=== PATIENT | male | born 1980 | race Caucasian/White ===

== ENCOUNTER 2021-03-16 21:22 | Emergency (ER) | payer BC ==
--- NOTE | 2021-03-17 01:16 | EDM.PDOC ---
ED HPI GENERAL MEDICAL PROBLEM - General Chief Complaint: Respiratory Problem Stated Complaint: COVID+/PNEUMONIA/LOW O2 Time Seen by Provider: 03/17/21 01:14 - History of Present Illness INITIAL COMMENTS - FREE TEXT/NARRATIVE: 40-year-old male presents the emergency room with decreasing O2 saturation he is known to have Covid. Patient was diagnosed at one of the clinics couple of days ago with Covid since that time is noticed his O2 saturation decreasing. The patient has not received Regeneron. He has been started on Zithromax and Cefpodoxime by the physician in the clinic. And he has not had the vaccine. Patient denies any other complaints at this time. - Related Data Allergies Allergy/AdvReac Type Severity Reaction Status Date / Time Penicillins Allergy Severe Rash Verified 03/16/21 23:17 Home Meds: Home Meds dexAMETHasone [Decadron] 6 mg PO DAILY #9 tablet 03/17/21 [Rx] ED ROS GENERAL - Review of Systems Review Of Systems: See Below Constitutional: Reports: Fever, Malaise, Weakness HEENT: Reports: No Symptoms Respiratory: Reports: Shortness of Breath, Cough. Denies: Sputum Cardiovascular: Reports: No Symptoms Endocrine: Reports: No Symptoms GI/Abdominal: Reports: No Symptoms : Reports: No Symptoms Musculoskeletal: Reports: No Symptoms Skin: Reports: No Symptoms Neurological: Reports: No Symptoms Psychiatric: Reports: No Symptoms Hematologic/Lymphatic: Reports: No Symptoms ED EXAM, GENERAL - Physical Exam Exam: See Below Exam Limited By: No Limitations General Appearance: Alert, No Apparent Distress, Other (He does drop into the mid to upper 80s on room air) Eye Exam: Bilateral Eye: Normal Inspection Ears: Normal External Exam, Normal Canal, Hearing Grossly Normal, Normal TMs Nose: Normal Inspection, Normal Mucosa, No Blood Throat/Mouth: Normal Inspection, Normal Lips, Normal Teeth, Normal Gums, Normal Oropharynx, Normal Voice, No Airway Compromise Head: Atraumatic, Normocephalic Neck: Normal Inspection, Supple, Non-Tender, Full Range of Motion Respiratory/Chest: No Respiratory Distress, Lungs Clear, Crackles (Few faint crackles bilateral lung bases) Cardiovascular: Normal Peripheral Pulses, Regular Rate, Rhythm, No Edema GI/Abdominal: Normal Bowel Sounds, Soft, Non-Tender Back Exam: Normal Inspection. No: CVA Tenderness (L), CVA Tenderness (R) Extremities: Normal Inspection, No Pedal Edema Neurological: Alert, Oriented, Normal Cognition #1 Interpretation EKG Date: 03/17/21 Rhythm: NSR Rate (Beats/Min): 90 [place]: LAD-Left [place] Deviation (Borderline) P-Wave: Present (Late transition) QRS: Other (Late transition) ST-T: Normal QT: Normal Comparison: NA - No Prior EKG EKG Interpretation Comments: Abnormal EKG Course - Vital Signs Last Recorded V/S: Last Vital Signs Temp 36.8 C 03/16/21 23:11 Pulse 97 03/16/21 23:11 Resp 18 03/16/21 23:11 BP Pulse Ox 88 L 03/17/21 05:29 - Orders/Labs/Meds Orders: Active Orders 24 hr Category Date Time Status RT Post Treatment Assessment [RC] Click to Edit Care 03/17/21 06:26 Ordered RT Pre-Treatment Assessment [RC] Click to Edit Care 03/17/21 06:26 Ordered Chest 1V Frontal [CR] Stat Exams 03/17/21 01:27 Taken Labs: Laboratory Tests 03/17/21 03/17/21 03/17/21 Range/Units 01:46 01:46 01:46 WBC 5.79 (4.23-9.07) K/mm3 RBC 4.89 (4.63-6.08) M/mm3 Hgb 14.9 (13.7-17.5) gm/dl Hct 43.5 (40.1-51.0) % MCV 89.0 (79.0-92.2) fl MCH 30.5 (25.7-32.2) pg MCHC 34.3 (32.2-35.5) g/dl RDW Std Deviation 41.7 (35.1-43.9) fL Plt Count 165 (163-337) K/mm3 MPV 10.3 (9.4-12.3) fl Neut % (Auto) 77.8 H (34.0-67.9) % Lymph % (Auto) 13.6 L (21.8-53.1) % [place] % (Auto) 7.9 (5.3-12.2) % Eos % (Auto) 0.2 L (0.8-7.0) Baso % (Auto) 0.2 (0.1-1.2) % Neut # (Auto) 4.50 (1.78-5.38) K/mm3 Lymph # (Auto) 0.79 L (1.32-3.57) K/mm3 [place] # (Auto) 0.46 (0.30-0.82) K/mm3 Eos # (Auto) 0.01 L (0.04-0.54) K/mm3 Baso # (Auto) 0.01 (0.01-0.08) K/mm3 D-Dimer, Quantitative 0.85 H (0.19-0.50) mg/L Sodium 136 (136-145) mEq/L Potassium 3.2 L (3.5-5.1) mEq/L Chloride 98 (98-107) mEq/L Carbon Dioxide 27 (21-32) mEq/L Anion Gap 14.2 (5-15) BUN 10 (7-18) mg/dL Creatinine 1.0 (0.7-1.3) mg/dL Est Cr Clr Drug Dosing 112.08 mL/min Estimated GFR (MDRD) > 60 (>60) mL/min BUN/Creatinine Ratio 10.0 L (14-18) Glucose 118 H (70-99) mg/dL Calcium 8.2 L (8.5-10.1) mg/dL Ferritin (26-388) ng/ml Total Bilirubin 0.5 (0.2-1.0) mg/dL AST 112 H (15-37) U/L ALT 149 H (16-63) U/L Alkaline Phosphatase 93 (46-116) U/L Lactate Dehydrogenase 417 H (85-227) U/L Troponin I < 0.017 (0.00-0.056) ng/mL C-Reactive Protein 7.1 H* (<1.0) mg/dL Total Protein 6.8 (6.4-8.2) g/dl Albumin 3.2 L (3.4-5.0) g/dl Globulin 3.6 gm/dL Albumin/Globulin Ratio 0.9 L (1-2) 03/17/ Range/Units 01:46 WBC (4.23-9.07) K/mm3 RBC (4.63-6.08) M/mm3 Hgb (13.7-17.5) gm/dl Hct (40.1-51.0) % MCV (79.0-92.2) fl MCH (25.7-32.2) pg MCHC (32.2-35.5) g/dl RDW Std Deviation (35.1-43.9) fL Plt Count (163-337) K/mm3 MPV (9.4-12.3) fl Neut % (Auto) (34.0-67.9) % Lymph % (Auto) (21.8-53.1) % [place] % (Auto) (5.3-12.2) % Eos % (Auto) (0.8-7.0) Baso % (Auto) (0.1-1.2) % Neut # (Auto) (1.78-5.38) K/mm3 Lymph # (Auto) (1.32-3.57) K/mm3 [place] # (Auto) (0.30-0.82) K/mm3 Eos # (Auto) (0.04-0.54) K/mm3 Baso # (Auto) (0.01-0.08) K/mm3 D-Dimer, Quantitative (0.19-0.50) mg/L Sodium (136-145) mEq/L Potassium (3.5-5.1) mEq/L Chloride (98-107) mEq/L Carbon Dioxide (21-32) mEq/L Anion Gap (5-15) BUN (7-18) mg/dL Creatinine (0.7-1.3) mg/dL Est Cr Clr Drug Dosing mL/min Estimated GFR (MDRD) (>60) mL/min BUN/Creatinine Ratio (14-18) Glucose (70-99) mg/dL Calcium (8.5-10.1) mg/dL Ferritin 2392 H (26-388) ng/ml Total Bilirubin (0.2-1.0) mg/dL AST (15-37) U/L ALT (16-63) U/L Alkaline Phosphatase (46-116) U/L Lactate Dehydrogenase (85-227) U/L Troponin I (0.00-0.056) ng/mL C-Reactive Protein (<1.0) mg/dL Total Protein (6.4-8.2) g/dl Albumin (3.4-5.0) g/dl Globulin gm/dL Albumin/Globulin Ratio (1-2) Meds: Medications Discontinued Medications Generic Name Dose Route Start Last Admin Trade Name Lupis PRN Reason Stop Dose Admin Albuterol 0 gm 03/17/21 06:26 Albuterol 6.7 Gm Inhaler INH 03/17/21 06:27 Q4H ONE Dexamethasone 6 mg 03/17/21 06:24 Dexamethasone 4 Mg Tab PO 03/17/21 06:25 ONETIME ONE - Re-Assessments/Exams Free Text/Narrative Re-Assessment/Exam: 03/17/21 05:13 Labs obtained. Chest x-ray consistent with a viral type pneumonia. With further discussion with the patient he really does not want more medications for this. His O2 saturation was a little low however it was a little better in the prone position but did not reliably stay up above 90% especially with him sleeping. At this point we will try and get home O2 set up for him. Apparently the patient does not want remdesivir. We will send home with dexamethasone and albuterol MDI and home O2 Departure - Departure Time of Disposition: 06:30 Disposition: Home, Self-Care 01 Clinical Impression: Pneumonia due to COVID-19 virus - Discharge Information Referrals: PCP,None [Primary Care Provider] - Forms: ED Department Discharge Additional Instructions: Return to the emergency room with any questions problems or concerning symptoms. You have been started on oxygen use this at all times until you start to improve. Continue routine medications. We have added an albuterol inhaler 2 puffs every 4 hours while awake and dexamethasone, this is a steroid take this every morning. The prescription for the dexamethasone was sent to the [place] pharmacy. And the albuterol inhaler was given to you here in the emergency department. Social isolation for at least 12 days after the onset of symptoms or as directed by the health department. Sepsis Event Note (ED) - Evaluation Sepsis Screening Result: No Definite Risk - Focused Exam Vital Signs: Vital Signs Temp Pulse Resp Pulse Ox 03/17/21 05:29 88 L 03/16/21 23:11 36.8 C 97 18 89 L - My Orders Last 24 Hours: My Active Orders 03/17/21 01:27 Chest 1V Frontal [CR] Stat 03/17/21 06:26 RT Post Treatment Assessment [RC] Click to Edit RT Pre-Treatment Assessment [RC] Click to Edit - Assessment/Plan Last 24 Hours: My Active Orders 03/17/21 01:27 Chest 1V Frontal [CR] Stat 03/17/21 06:26 RT Post Treatment Assessment [RC] Click to Edit RT Pre-Treatment Assessment [RC] Click to Edit
[2021-03-17] MEDS ORDERED: Dexamethasone 4 MG Tab PO ONE (06:24)
[2021-03-17] MEDS ORDERED: Albuterol 6.7 GM Inhaler INH ONE (06:26)
--- NOTE | 2021-03-17 07:41 | CR ---
Chest: Frontal view of the chest was obtained. Comparison: No prior chest imaging is available. Diffuse increased density is seen within the left chest. Lesser density is noted within the right mid and lower chest. Heart size and mediastinum are normal. Bony structures show nothing acute. Impression: 1. Findings highly suspicious for COVID pneumonia, worse within the left lung. Diagnostic code #3
== END 2021-03-17 07:18 | disposition home or self-care (01) ==
LOC: JD.ED 21:22
DX: U07.1 COVID-19 (principal); J12.82 Pneumonia due to coronavirus disease 2019; R94.31 Abnormal electrocardiogram [ECG] [EKG]; Z88.0 Allergy status to penicillin
CPT/HCPCS: 36415; 71045; 80053; 82728; 83615; 84484; 85025; 85379; 86140; 93005; 94640; 99284; A9270; J8540; 93010; 99283

== ENCOUNTER 2021-03-21 11:32 | Inpatient (IN) | payer BC ==
--- NOTE | 2021-03-21 12:36 | EDM.PDOC ---
ED HPI GENERAL MEDICAL PROBLEM - General Chief Complaint: Respiratory Problem Stated Complaint: RESP PROBLEMS Time Seen by Provider: 03/21/21 11:55 Source of Information: Reports: Patient, RN Notes Reviewed History Limitations: Reports: No Limitations - History of Present Illness INITIAL COMMENTS - FREE TEXT/NARRATIVE: Patient is a 40-year-old male presenting to the emergency department with complaints of low oxygen saturations with a known diagnosis of COVID-19. Patient began symptoms of Covid on approximately March 08 and was diagnosed as Covid positive on the . Main complaint at this time is cough and shortness of breath. He was seen in this emergency department 2 days ago. He was found to have Covid pneumonia at that time. Regeneron was offered, however patient declined as his do not want to have it. Patient reports that during the night his oxygen saturations seem to maintain, however throughout the course of the day today they have been continuing to decline. Patient has been treated with azithromycin and is currently on 6 mg of dexamethasone daily. He denies any chronic medical conditions. He denies chest pain, nausea, vomiting, or diarrhea. - Related Data Allergies Allergy/AdvReac Type Severity Reaction Status Date / Time Penicillins Allergy Intermediate Rash Verified 03/21/21 11:50 Home Meds: Home Meds dexAMETHasone [Decadron] 6 mg PO DAILY #9 tablet 03/17/21 [Rx] Azithromycin [Zithromax] 250 mg PO DAILY 03/21/21 [History] Past Medical History - Past Health History Medical/Surgical History: Denies Medical/Surgical History - Infectious Disease History Infectious Disease History: Reports: Novel Coronavirus - Past Surgical History HEENT Surgical History: Reports: Oral Surgery GI Surgical History: Reports: Hernia Repair/Other Social & Family History - Tobacco Use Tobacco Use Status *Q: Current Every Day Tobacco User Years of Tobacco use: 5 Packs/Tins Daily: 0.2 - Caffeine Use Caffeine Use: Reports: None - Alcohol Use Days Per Week of Alcohol Use: 2 Number of Drinks Per Day: 1 Total Drinks Per Week: 2 - Recreational Drug Use Recreational Drug Use: No ED ROS GENERAL - Review of Systems Review Of Systems: See Below Constitutional: Reports: No Symptoms. Denies: Fever HEENT: Reports: No Symptoms Respiratory: Reports: Shortness of Breath, Cough Cardiovascular: Reports: Dyspnea on Exertion. Denies: Chest Pain Endocrine: Reports: No Symptoms GI/Abdominal: Reports: No Symptoms. Denies: Abdominal Pain, Diarrhea, Vomiting : Reports: No Symptoms Musculoskeletal: Reports: No Symptoms Skin: Reports: No Symptoms Neurological: Reports: No Symptoms Psychiatric: Reports: No Symptoms Hematologic/Lymphatic: Reports: No Symptoms Immunologic: Reports: No Symptoms ED EXAM, GENERAL - Physical Exam Exam: See Below Exam Limited By: No Limitations General Appearance: Alert, WD/WN, No Apparent Distress Respiratory/Chest: No Respiratory Distress, No Accessory Muscle Use, Chest Non- Tender, Decreased Breath Sounds. No: Crackles, Wheezing Cardiovascular: Normal Peripheral Pulses, Regular Rate, Rhythm, No Edema, No Gallop, No JVD, No Murmur, No Rub Neurological: Alert, Oriented, CN II-XII Intact, Normal Cognition, Normal Gait, Normal Reflexes, No Motor/Sensory Deficits Psychiatric: Normal Affect, Normal Mood Skin Exam: Warm, Dry, Intact, Normal Color, No Rash #1 Interpretation EKG Date: 03/21/21 Time: 12:18 Rhythm: NSR Rate (Beats/Min): 87 [place]: Normal P-Wave: Present QRS: Normal ST-T: Normal QT: Normal Course - Vital Signs Last Recorded V/S: Last Vital Signs Temp 98.4 F 03/22/21 17:12 Pulse 72 03/22/21 17:12 Resp 20 03/22/21 17:12 BP 125/75 03/22/21 17:12 Pulse Ox 92 L 03/22/21 17:35 - Orders/Labs/Meds Orders: Medication Orders Acetaminophen (Acetaminophen 325 Mg Tab) 650 mg PO Q4H PRN PRN Reason: Pain (Mild 1-3)/fever Albuterol/Ipratropium (Albuterol/Ipratropium 3.0-0.5 Mg/3 Ml Neb Soln) 3 ml NEB Q4H PRN PRN Reason: Shortness Of Breath/wheezing Last Admin: 03/22/21 09:11 Dose: 3 ml Documented by: DEBORAH Dexamethasone (Dexamethasone 4 Mg Tab) 6 mg PO DAILY SLOAN Last Admin: 03/22/21 08:47 Dose: 6 mg Documented by: [email or web address] Docusate Sodium (Docusate Sodium 100 Mg Cap) 100 mg PO BID PRN PRN Reason: Constipation Enoxaparin Sodium (Enoxaparin 40 Mg/0.4 Ml Syringe) 40 mg SUBCUT DAILY [facility] Last Admin: 03/22/21 08:47 Dose: 40 mg Documented by: IRVING Azithromycin 500 mg/ Sodium (Chloride) 250 mls @ 250 mls/hr IV Q24H [facility] Last Admin: 03/22/21 15:03 Dose: 250 mls/hr Documented by: Infusion: 03/21/21 16:50 Dose: 250 mls/hr Documented by: Admin: 03/21/21 15:50 Dose: 250 mls/hr Documented by: LONNY Ondansetron HCl (Ondansetron 4 Mg Tab.Dis) 4 mg PO Q4H PRN PRN Reason: nausea, able to take PO Oxycodone HCl (Oxycodone 5 Mg Tab) 5 mg PO Q4H PRN PRN Reason: Pain (moderate 4-6) Temazepam (Temazepam 15 Mg Cap) 15 mg PO BEDTIME PRN PRN Reason: Sleep Labs: Laboratory Tests 03/21/21 03/21/21 03/21/21 Range/Units 12:19 12:19 12:19 WBC 15.29 H (4.23-9.07) K/mm3 RBC 5.02 (4.63-6.08) M/mm3 Hgb 15.2 (13.7-17.5) gm/dl Hct 45.0 (40.1-51.0) % MCV 89.6 (79.0-92.2) fl MCH 30.3 (25.7-32.2) pg MCHC 33.8 (32.2-35.5) g/dl RDW Std Deviation 41.2 (35.1-43.9) fL Plt Count 329 D (163-337) K/mm3 MPV 9.8 (9.4-12.3) fl Neut % (Auto) 76.0 H (34.0-67.9) % Lymph % (Auto) 9.2 L (21.8-53.1) % [place] % (Auto) 10.3 (5.3-12.2) % Eos % (Auto) 0 L (0.8-7.0) Baso % (Auto) 1.6 H (0.1-1.2) % Neut # (Auto) 11.62 H (1.78-5.38) K/mm3 Lymph # (Auto) 1.40 (1.32-3.57) K/mm3 [place] # (Auto) 1.57 H (0.30-0.82) K/mm3 Eos # (Auto) 0.00 L (0.04-0.54) K/mm3 Baso # (Auto) 0.25 H (0.01-0.08) K/mm3 Manual Slide Review Abnormal smear D-Dimer, Quantitative 8.59 H (0.19-0.50) mg/L Sodium 135 L (136-145) mEq/L Potassium 4.2 (3.5-5.1) mEq/L Chloride 99 (98-107) mEq/L Carbon Dioxide 28 (21-32) mEq/L Anion Gap 12.2 (5-15) BUN 16 (7-18) mg/dL Creatinine 0.9 (0.7-1.3) mg/dL Est Cr Clr Drug Dosing 120.95 mL/min Estimated GFR (MDRD) > 60 (>60) mL/min BUN/Creatinine Ratio 17.8 (14-18) Glucose 132 H (70-99) mg/dL Calcium 8.8 (8.5-10.1) mg/dL Total Bilirubin 0.7 (0.2-1.0) mg/dL AST 108 H (15-37) U/L ALT 221 H (16-63) U/L Alkaline Phosphatase 142 H (46-116) U/L Troponin I < 0.017 (0.00-0.056) ng/mL C-Reactive Protein 3.0 H* (<1.0) mg/dL NT-Pro-B Natriuret Pep (0-125) pg/mL Total Protein 7.2 (6.4-8.2) g/dl Albumin 3.0 L (3.4-5.0) g/dl Globulin 4.2 gm/dL Albumin/Globulin Ratio 0.7 L (1-2) 03/21/21 Range/Units 12:19 WBC (4.23-9.07) K/mm3 RBC (4.63-6.08) M/mm3 Hgb (13.7-17.5) gm/dl Hct (40.1-51.0) % MCV (79.0-92.2) fl MCH (25.7-32.2) pg MCHC (32.2-35.5) g/dl RDW Std Deviation (35.1-43.9) fL Plt Count (163-337) K/mm3 MPV (9.4-12.3) fl Neut % (Auto) (34.0-67.9) % Lymph % (Auto) (21.8-53.1) % [place] % (Auto) (5.3-12.2) % Eos % (Auto) (0.8-7.0) Baso % (Auto) (0.1-1.2) % Neut # (Auto) (1.78-5.38) K/mm3 Lymph # (Auto) (1.32-3.57) K/mm3 [place] # (Auto) (0.30-0.82) K/mm3 Eos # (Auto) (0.04-0.54) K/mm3 Baso # (Auto) (0.01-0.08) K/mm3 Manual Slide Review D-Dimer, Quantitative (0.19-0.50) mg/L Sodium (136-145) mEq/L Potassium (3.5-5.1) mEq/L Chloride (98-107) mEq/L Carbon Dioxide (21-32) mEq/L Anion Gap (5-15) BUN (7-18) mg/dL Creatinine (0.7-1.3) mg/dL Est Cr Clr Drug Dosing mL/min Estimated GFR (MDRD) (>60) mL/min BUN/Creatinine Ratio (14-18) Glucose (70-99) mg/dL Calcium (8.5-10.1) mg/dL Total Bilirubin (0.2-1.0) mg/dL AST (15-37) U/L ALT (16-63) U/L Alkaline Phosphatase (46-116) U/L Troponin I (0.00-0.056) ng/mL C-Reactive Protein (<1.0) mg/dL NT-Pro-B Natriuret Pep 193 H (0-125) pg/mL Total Protein (6.4-8.2) g/dl Albumin (3.4-5.0) g/dl Globulin gm/dL Albumin/Globulin Ratio (1-2) Meds: Medications Generic Name Dose Route Start Last Admin Trade Name Lupis PRN Reason Stop Dose Admin Acetaminophen 650 mg 03/21/21 14:12 Acetaminophen 325 Mg Tab PO Q4H PRN Pain (Mild 1-3)/fever Albuterol/Ipratropium 3 ml 03/21/21 14:12 03/22/21 09:11 Albuterol/Ipratropium 3.0-0.5 Mg/3 Ml Neb Soln NEB 3 ml Q4H PRN Administration Shortness Of Breath/wheezing Dexamethasone 6 mg 03/22/21 09:00 03/22/21 08:47 Dexamethasone 4 Mg Tab PO 6 mg DAILY SLOAN Administration Docusate Sodium 100 mg 03/21/21 14:12 Docusate Sodium 100 Mg Cap PO BID PRN Constipation Enoxaparin Sodium 40 mg 03/22/21 09:00 03/22/21 08:47 Enoxaparin 40 Mg/0.4 Ml Syringe SUBCUT 40 mg DAILY SLOAN Administration Azithromycin 500 mg/ Sodium 250 mls @ 250 mls/hr 03/21/21 15:00 03/22/21 15:03 Chloride IV 250 mls/hr Q24H SLOAN Administration Ondansetron HCl 4 mg 03/21/21 14:12 Ondansetron 4 Mg Tab.Dis PO Q4H PRN nausea, able to take PO Oxycodone HCl 5 mg 03/21/21 14:12 Oxycodone 5 Mg Tab PO Q4H PRN Pain (moderate 4-6) Temazepam 15 mg 03/21/21 14:12 Temazepam 15 Mg Cap PO BEDTIME PRN Sleep Discontinued Medications Generic Name Dose Route Start Last Admin Trade Name Lupis PRN Reason Stop Dose Admin Sodium Chloride 100 mls @ 60 mls/hr 03/21/21 15:15 03/21/21 15:12 Normal Saline IV 60 mls/hr ASDIRECTED SLOAN Administration Iopamidol 100 ml 03/21/21 15:11 03/21/21 15:12 Iopamidol 755 Mg/Ml 100 Ml Bottle IVPUSH 03/21/21 15:12 100 ml ONETIME ONE Administration Morphine Sulfate 2 mg 03/21/21 14:12 Morphine 2 Mg/Ml Syringe IVPUSH 03/22/21 14:12 Q2H PRN Pain (severe 7-10) Sodium Chloride 10 ml 03/21/21 15:11 03/21/21 15:12 Sodium Chloride 0.9% 10 Ml Syringe FLUSH 03/21/21 15:12 10 ml ONETIME ONE Administration - Re-Assessments/Exams Free Text/Narrative Re-Assessment/Exam: Patient is a 40-year-old male presenting to the emergency department for low oxygen saturations with diagnosis of Covid. He is approximately 2 weeks into his illness. Report oxygen saturations in the 80s at home. On arrival to ER, oxygen saturation was found to be in the low 80s. He was placed on supplemental O2 at 2 L which only brought him up into the upper 80s. Nursing staff had progressively titrated him up. The time my exam he was on 4 L of oxygen still only saturating in the upper 80s. I turned him up to 6 L and he was maintaining oxygen saturation of 88%. Lung sounds are significantly diminished, however there is no audible crackling or wheezing. Majority of his other symptoms have resolved. His only complaints are cough and shortness of breath. I have ordered blood work, EKG, chest x-ray. Patient is already on dexamethasone 6 mg daily. Patient will be started on high flow oxygen to keep saturations above 90%. 03/21/21 1400 Hematology significant for WBC elevated 15.29, D-dimer 8.59, sodium 135, AST 108, ALT 221, alkaline phosphatase 142, CRP 3.0, proBNP 193. Troponin is undetectably low. Elevation in WBCs is likely due to the dexamethasone which the patient has been taking. He is maintaining oxygen saturations in the low 90s on 35 L of oxygen with an FiO2 of 45%. Given the significant increase in his D-dimer, I have ordered a CT angiogram of the chest to be completed. Case was discussed with hospitalist, Dr. Francois. He will accept the patient for admission to the medical surgical unit. Departure - Departure Time of Disposition: 14:00 Disposition: Admitted As Inpatient 67 Condition: Fair Clinical Impression: Pneumonia due to COVID-19 virus, Hypoxemia Acute respiratory failure Qualifiers: Respiratory failure complication: hypoxia Qualified Code(s): J96.01 - Acute respiratory failure with hypoxia - Discharge Information
[2021-03-21] MEDS ORDERED: oxyCODONE 5 MG Tab PO PRN (14:12)
[2021-03-21] MEDS ORDERED: Docusate Sodium 100 MG Cap PO PRN (14:12)
[2021-03-21] MEDS ORDERED: Acetaminophen 325 MG Tab PO PRN (14:12)
[2021-03-21] MEDS ORDERED: Ondansetron 4 MG Tab.DIS PO PRN (14:12)
[2021-03-21] MEDS ORDERED: Temazepam 15 MG Cap PO PRN (14:12)
[2021-03-21] MEDS ORDERED: Morphine 2 MG/ML SYRINGE IVPUSH PRN (14:12)
--- NOTE | 2021-03-21 14:19 | PCM.HP.2 ---
H&P History of Present Illness - General Date of Service: 03/21/21 Admit Problem/Dx: Admission Diagnosis/Problem Admission Diagnosis/Problem Hypoxia Source of Information: Patient History Limitations: Reports: No Limitations - History of Present Illness Initial Comments - Free Text/Narative: The patient is an otherwise healthy 40-year-old gentleman who presented to the emergency department with worsening shortness of breath and and low oxygen saturation levels. The patient had been testing his pulse ox at home. The patient had been using oxygen at home on a temporary basis and he also had been started on steroids. The patient also completed a course of azithromycin. Initially Regeneron was offered but this was declined. The patient also states that he is off of quarantine according to the [facility] department. The patient is not taking any other medications chronically. Onset of Symptoms: Reports: Gradual Duration of Symptoms: Reports: Week(s): Location: Reports: Chest, Generalized Severity: Mild Improves with: Reports: Rest, Other (Oxygen) Worsens with: Reports: Movement Context: Reports: Sick Contact Associated Symptoms: Reports: No Other Symptoms - Related Data Allergies/Adverse Reactions: Allergies Allergy/AdvReac Type Severity Reaction Status Date / Time Penicillins Allergy Intermediate Rash Verified 03/21/21 11:50 Home Medications: Home Meds dexAMETHasone [Decadron] 6 mg PO DAILY #9 tablet 03/17/21 [Rx] Past Medical History - Past Health History Medical/Surgical History: Denies Medical/Surgical History HEENT History: Reports: None Cardiovascular History: Reports: None Respiratory History: Reports: None Gastrointestinal History: Reports: None Genitourinary History: Reports: None Musculoskeletal History: Reports: None Neurological History: Reports: None Psychiatric History: Reports: None Endocrine/Metabolic History: Reports: None Hematologic History: Reports: None Oncologic (Cancer) History: Reports: None - Infectious Disease History Infectious Disease History: Reports: Novel Coronavirus - Past Surgical History HEENT Surgical History: Reports: Oral Surgery GI Surgical History: Reports: Hernia Repair/Other Social & Family History - Tobacco Use Tobacco Use Status *Q: Current Every Day Tobacco User Tobacco Use Within Last Twelve Months: Smokeless Tobacco Years of Tobacco use: 5 Packs/Tins Daily: 0.2 - Caffeine Use Caffeine Use: Reports: None - Alcohol Use Days Per Week of Alcohol Use: 2 Number of Drinks Per Day: 1 Total Drinks Per Week: 2 - Recreational Drug Use Recreational Drug Use: No - Living Situation & Occupation Living situation: Reports: , with Spouse Occupation: Employed H&P Review of Systems - Review of Systems: Review Of Systems: See Below General: Reports: Chills, Weakness HEENT: Reports: No Symptoms Pulmonary: Reports: Shortness of Breath Cardiovascular: Reports: No Symptoms Gastrointestinal: Reports: No Symptoms Genitourinary: Reports: No Symptoms Musculoskeletal: Reports: No Symptoms Skin: Reports: No Symptoms Psychiatric: Reports: No Symptoms Neurological: Reports: No Symptoms Hematologic/Lymphatic: Reports: No Symptoms Immunologic: Reports: No Symptoms Exam - Exam Exam: See Below - Vital Signs Vital Signs: Last Vital Signs Temp 36.4 C 03/21/21 11:47 Pulse 86 03/21/21 11:47 Resp 20 03/21/21 11:47 BP 138/85 03/21/21 11:47 Pulse Ox 92 L 03/21/21 13:55 Weight: 108.862 kg - Exam Quality Assessment: Supplemental Oxygen, DVT Prophylaxis General: Alert, Oriented, Cooperative HEENT: Conjunctiva Clear, EACs Clear, EOMI, Mucosa Moist & [place], PERRLA Neck: Supple, Trachea Midline Lungs: Decreased Breath Sounds, Crackles (Widely scattered) Cardiovascular: Regular Rate, Regular Rhythm GI/Abdominal Exam: Normal Bowel Sounds, Soft, Non-Tender, No Distention (Male) Exam: Deferred Rectal (Males) Exam: Deferred Back Exam: Normal Inspection, Full Range of Motion Extremities: Normal Inspection, Normal Range of Motion, No Pedal Edema Skin: Warm, Dry, Intact Neurological: Cranial Nerves Intact, Normal Gait, Normal Speech, Normal Tone Psychiatric: Alert, Normal Affect, Normal Mood - Patient Data Lab Results Last 24 hrs: Laboratory Results - last 24 hr 03/21/21 03/21/21 03/21/21 Range/Units 12:19 12:19 12:19 WBC 15.29 H (4.23-9.07) K/mm3 RBC 5.02 (4.63-6.08) M/mm3 Hgb 15.2 (13.7-17.5) gm/dl Hct 45.0 (40.1-51.0) % MCV 89.6 (79.0-92.2) fl MCH 30.3 (25.7-32.2) pg MCHC 33.8 (32.2-35.5) g/dl RDW Std Deviation 41.2 (35.1-43.9) fL Plt Count 329 D (163-337) K/mm3 MPV 9.8 (9.4-12.3) fl Neut % (Auto) 76.0 H (34.0-67.9) % Lymph % (Auto) 9.2 L (21.8-53.1) % [place] % (Auto) 10.3 (5.3-12.2) % Eos % (Auto) 0 L (0.8-7.0) Baso % (Auto) 1.6 H (0.1-1.2) % Neut # (Auto) 11.62 H (1.78-5.38) K/mm3 Lymph # (Auto) 1.40 (1.32-3.57) K/mm3 [place] # (Auto) 1.57 H (0.30-0.82) K/mm3 Eos # (Auto) 0.00 L (0.04-0.54) K/mm3 Baso # (Auto) 0.25 H (0.01-0.08) K/mm3 Manual Slide Review Abnormal smear D-Dimer, Quantitative 8.59 H (0.19-0.50) mg/L Sodium 135 L (136-145) mEq/L Potassium 4.2 (3.5-5.1) mEq/L Chloride 99 (98-107) mEq/L Carbon Dioxide 28 (21-32) mEq/L Anion Gap 12.2 (5-15) BUN 16 (7-18) mg/dL Creatinine 0.9 (0.7-1.3) mg/dL Est Cr Clr Drug Dosing 120.95 mL/min Estimated GFR (MDRD) > 60 (>60) mL/min BUN/Creatinine Ratio 17.8 (14-18) Glucose 132 H (70-99) mg/dL Calcium 8.8 (8.5-10.1) mg/dL Total Bilirubin 0.7 (0.2-1.0) mg/dL AST 108 H (15-37) U/L ALT 221 H (16-63) U/L Alkaline Phosphatase 142 H (46-116) U/L Troponin I < 0.017 (0.00-0.056) ng/mL C-Reactive Protein 3.0 H* (<1.0) mg/dL NT-Pro-B Natriuret Pep (0-125) pg/mL Total Protein 7.2 (6.4-8.2) g/dl Albumin 3.0 L (3.4-5.0) g/dl Globulin 4.2 gm/dL Albumin/Globulin Ratio 0.7 L (1-2) 03/21/ Range/Units 12:19 WBC (4.23-9.07) K/mm3 RBC (4.63-6.08) M/mm3 Hgb (13.7-17.5) gm/dl Hct (40.1-51.0) % MCV (79.0-92.2) fl MCH (25.7-32.2) pg MCHC (32.2-35.5) g/dl RDW Std Deviation (35.1-43.9) fL Plt Count (163-337) K/mm3 MPV (9.4-12.3) fl Neut % (Auto) (34.0-67.9) % Lymph % (Auto) (21.8-53.1) % [place] % (Auto) (5.3-12.2) % Eos % (Auto) (0.8-7.0) Baso % (Auto) (0.1-1.2) % Neut # (Auto) (1.78-5.38) K/mm3 Lymph # (Auto) (1.32-3.57) K/mm3 [place] # (Auto) (0.30-0.82) K/mm3 Eos # (Auto) (0.04-0.54) K/mm3 Baso # (Auto) (0.01-0.08) K/mm3 Manual Slide Review D-Dimer, Quantitative (0.19-0.50) mg/L Sodium (136-145) mEq/L Potassium (3.5-5.1) mEq/L Chloride (98-107) mEq/L Carbon Dioxide (21-32) mEq/L Anion Gap (5-15) BUN (7-18) mg/dL Creatinine (0.7-1.3) mg/dL Est Cr Clr Drug Dosing mL/min Estimated GFR (MDRD) (>60) mL/min BUN/Creatinine Ratio (14-18) Glucose (70-99) mg/dL Calcium (8.5-10.1) mg/dL Total Bilirubin (0.2-1.0) mg/dL AST (15-37) U/L ALT (16-63) U/L Alkaline Phosphatase (46-116) U/L Troponin I (0.00-0.056) ng/mL C-Reactive Protein (<1.0) mg/dL NT-Pro-B Natriuret Pep 193 H (0-125) pg/mL Total Protein (6.4-8.2) g/dl Albumin (3.4-5.0) g/dl Globulin gm/dL Albumin/Globulin Ratio (1-2) Result Diagrams: 03/21/21 12:19 03/21/21 12:19 Sepsis Event Note - Focused Exam Vital Signs: Vital Signs Temp Pulse Resp BP Pulse Ox Pulse Ox Pulse Ox 03/21/21 13:55 92 L 03/21/21 12:54 93 L 03/21/21 11:58 92 L 03/21/21 11:57 88 L 03/21/21 11:47 36.4 C 86 20 138/85 87 L - Problem List (1) Acute respiratory failure SNOMED Code(s): 13346719 ICD Code: J96.00 - ACUTE RESPIRATORY FAILURE, UNSP W HYPOXIA OR HYPERCAPNIA Status: Acute Priority: High Current Visit: Yes Qualifiers: Respiratory failure complication: hypoxia Qualified Code(s): J96.01 - Acute respiratory failure with hypoxia (2) Pneumonia due to COVID-19 virus SNOMED Code(s): 503756427489698297 ICD Code: U07.1 - COVID-19; J12.82 - PNEUMONIA DUE TO CORONAVIRUS DISEASE 2019 Status: Acute Priority: High Current Visit: Yes Problem List Initiated/Reviewed/Updated: Yes Orders Last 24hrs: Active Orders 24 hr Category Date Time Status Admission Status [Patient Status] [ADT] Routine ADT 03/21/21 14:10 Active Cardiac Monitoring [RC] CONTINUOUS Care 03/21/21 14:12 Ordered Oxygen Therapy [RC] ASDIRECTED Care 03/21/21 12:54 Active Oxygen Therapy [RC] PRN Care 03/21/21 14:12 Ordered RT Aerosol Therapy [RC] ASDIRECTED Care 03/21/21 14:12 Ordered Up ad Dariana [RC] ASDIRECTED Care 03/21/21 14:12 Ordered VTE/DVT Education [RC] PER UNIT ROUTINE Care 03/21/21 14:12 Ordered Vital Signs [RC] Q4H Care 03/21/21 14:12 Ordered Regular Diet [DIET] Diet 03/21/21 Dinner Ordered Chest 1V Frontal [CR] Stat Exams 03/21/21 11:57 Taken PE Chest [Ang Chest] [CT] Stat Exams 03/21/21 13:06 Ordered C-REACTIVE PROTEIN [CHEM] AM Lab 03/22/21 05:11 Ordered CBC WITH AUTO DIFF [HEME] AM Lab 03/22/21 05:11 Ordered COMPREHENSIVE METABOLIC PN,CMP [CHEM] AM Lab 03/22/21 05:11 Ordered D-DIMER QUANTITATIVE [COAG] AM Lab 03/22/21 05:11 Ordered MAGNESIUM [CHEM] AM Lab 03/22/21 05:11 Ordered Acetaminophen [TylenoL] Med 03/21/21 14:12 Ordered 650 mg PO Q4H PRN Albuterol/Ipratropium [DuoNeb 3.0-0.5 MG/3 ML] Med 03/21/21 14:12 Ordered 3 ml NEB Q4H PRN Azithromycin [Zithromax] 500 mg Med 03/21/21 14:15 Ordered Sodium Chloride 0.9% [Normal Saline (AdvBag)] 250 ml IV Q24H Docusate Sodium [Colace] Med 03/21/21 14:12 Ordered 100 mg PO BID PRN Enoxaparin [Lovenox] Med 03/22/21 09:00 Ordered 40 mg SUBCUT DAILY Morphine Med 03/21/21 14:12 Ordered 2 mg IVPUSH Q2H PRN Ondansetron [Zofran ODT] Med 03/21/21 14:12 Ordered 4 mg PO Q4H PRN Temazepam [Restoril] Med 03/21/21 14:12 Ordered 15 mg PO BEDTIME PRN dexAMETHasone Med 03/22/21 09:00 Ordered 6 mg PO DAILY oxyCODONE Med 03/21/21 14:12 Ordered 5 mg PO Q4H PRN RT Oxygen High Flow [RESPCARE] Stat Oth 03/21/21 12:54 Active Resuscitation Status Routine Resus Stat 03/21/21 14:12 Ordered Medication Orders Acetaminophen (Acetaminophen 325 Mg Tab) 650 mg PO Q4H PRN PRN Reason: Pain (Mild 1-3)/fever Albuterol/Ipratropium (Albuterol/Ipratropium 3.0-0.5 Mg/3 Ml Neb Soln) 3 ml NEB Q4H PRN PRN Reason: Shortness Of Breath/wheezing Dexamethasone (Dexamethasone 4 Mg Tab) 6 mg PO DAILY SLOAN Docusate Sodium (Docusate Sodium 100 Mg Cap) 100 mg PO BID PRN PRN Reason: Constipation Enoxaparin Sodium (Enoxaparin 40 Mg/0.4 Ml Syringe) 40 mg SUBCUT DAILY SLOAN Azithromycin 500 mg/ Sodium (Chloride) 250 mls @ 250 mls/hr IV Q24H SLOAN Morphine Sulfate (Morphine 2 Mg/Ml Syringe) 2 mg IVPUSH Q2H PRN PRN Reason: Pain (severe 7-10) Stop: 03/22/21 14:12 Ondansetron HCl (Ondansetron 4 Mg Tab.Dis) 4 mg PO Q4H PRN PRN Reason: nausea, able to take PO Oxycodone HCl (Oxycodone 5 Mg Tab) 5 mg PO Q4H PRN PRN Reason: Pain (moderate 4-6) Temazepam (Temazepam 15 Mg Cap) 15 mg PO BEDTIME PRN PRN Reason: Sleep Assessment/Plan Comment:: The patient is an otherwise healthy 40-year-old gentleman who has been admitted to acute hospitalization as inpatient secondary to Covid pneumonia. The patient has a CT scan is currently pending as a result of markedly elevated D-dimer. The patient will be started on Lovenox 40 mg subcu daily venously daily. This will be adjusted upward as conditions warrant. The patient is also be kept on oxygen support to keep his saturations around 90 to 92%. The patient has been started on dexamethasone 6 mg p.o. daily. Also has a superimposed infection is likely the patient has been started on azithromycin 500 mg IV daily. The patient will be kept on his regular diet as tolerated. Repeat laboratory studies have been ordered for the morning. The patient has been ordered to have Acapella and incentive spirometer per RT. The patient should be appropriate for discharge in 2 to 3 days depending upon his oxygen demands. - Mortality Measure Prognosis:: Good
[2021-03-21] MEDS ORDERED: Iopamidol 755 Mg/ML 100 ML Bottle IVPUSH ONE (15:11)
[2021-03-21] MEDS ORDERED: Sodium Chloride 0.9% 10 ML Syringe FLUSH ONE (15:11)
[2021-03-21] MEDS ORDERED: Sodium Chloride 0.9% 100 ML IV SCH (15:15)
--- NOTE | 2021-03-21 15:39 | CR ---
Chest: Frontal view of the chest was obtained. Comparison: Prior chest x-ray of 03/17/21. Diffuse increased density is seen within both sides of the chest which has significantly worsened from prior study compatible with worsening COVID pneumonia. Heart size and mediastinum are within normal limits. No acute osseous finding is seen. Impression: 1. Prominent increased density throughout both sides chest compatible with significant worsening of COVID pneumonia. Diagnostic code #3
--- NOTE | 2021-03-21 15:39 | CT ---
CT chest Technique: Multiple axial sections through the chest were obtained. Intravenous contrast was utilized. Study has been performed as a pulmonary angiogram protocol. Comparison: Prior chest x-ray performed earlier on the same day (11:51 AM). Findings: Pulmonary arteries are well opacified. No filling defects are seen to indicate pulmonary embolism. Thoracic aorta shows no aneurysm. Mediastinum shows small lymph nodes without any mediastinal adenopathy. No axillary adenopathy is seen. No pericardial thickening is seen. Small portion of the visualized upper abdominal structures appear within normal limits. Lung window settings were reviewed which show multiple areas of increased density throughout both lungs compatible with prominent COVID pneumonia. These parenchymal densities are similar to most recent chest x-ray. Bone window settings were reviewed which show slight degenerative spurring within the spine. No acute osseous abnormality is appreciated. Impression: 1. No findings of pulmonary embolism. 2. Prominent change of COVID pneumonia within both lungs. This change is similar to recent chest x-ray performed on the same date. 3. Other findings believed to be nonacute as noted above. Diagnostic code #3
[2021-03-21] MEDS: Azithromycin 500 MG in Sodium Chloride 0.9% 250 ML IV SCH (15:50)
--- NOTE | 2021-03-22 07:11 | PCM.PN ---
- General Info Date of Service: 03/22/21 Admission Dx/Problem (Free Text): Admission Diagnosis/Problem Admission Diagnosis/Problem Hypoxia Subjective Update: The patient is a 40-year-old gentleman who was admitted yesterday secondary to worsening COVID-19 symptoms. The patient has been using pulse oximetry at home. He was also started as an outpatient with steroids. The patient today still says that he has been short of breath. He has been coughing. The patient has denied any new pain. He remains on high flow oxygen. Functional Status: Reports: Pain Controlled, Tolerating Diet - Review of Systems General: Reports: No Symptoms HEENT: Reports: No Symptoms Pulmonary: Reports: Shortness of Breath, Cough Cardiovascular: Reports: No Symptoms Gastrointestinal: Reports: No Symptoms Genitourinary: Reports: No Symptoms Musculoskeletal: Reports: No Symptoms Skin: Reports: No Symptoms Neurological: Reports: No Symptoms Psychiatric: Reports: No Symptoms - Patient Data Vitals - Most Recent: Last Vital Signs Temp 36.8 C 03/22/21 04:34 Pulse 58 L 03/22/21 04:34 Resp 18 03/22/21 04:34 BP 128/69 03/22/21 04:34 Pulse Ox 95 03/22/21 04:34 Weight - Most Recent: 103.147 kg I&O - Last 24 Hours: Intake & Output 03/21/21 03/22/21 03/22/21 22:59 06:59 14:59 Intake Total 450 800 Output Total 600 Balance -150 800 Lab Results Last 24 Hours: Laboratory Results - last 24 hr 03/21/21 03/21/21 03/21/21 Range/Units 12:19 12:19 12:19 WBC 15.29 H (4.23-9.07) K/mm3 RBC 5.02 (4.63-6.08) M/mm3 Hgb 15.2 (13.7-17.5) gm/dl Hct 45.0 (40.1-51.0) % MCV 89.6 (79.0-92.2) fl MCH 30.3 (25.7-32.2) pg MCHC 33.8 (32.2-35.5) g/dl RDW Std Deviation 41.2 (35.1-43.9) fL Plt Count 329 D (163-337) K/mm3 MPV 9.8 (9.4-12.3) fl Neut % (Auto) 76.0 H (34.0-67.9) % Lymph % (Auto) 9.2 L (21.8-53.1) % Harlan % (Auto) 10.3 (5.3-12.2) % Eos % (Auto) 0 L (0.8-7.0) Baso % (Auto) 1.6 H (0.1-1.2) % Neut # (Auto) 11.62 H (1.78-5.38) K/mm3 Lymph # (Auto) 1.40 (1.32-3.57) K/mm3 Harlan # (Auto) 1.57 H (0.30-0.82) K/mm3 Eos # (Auto) 0.00 L (0.04-0.54) K/mm3 Baso # (Auto) 0.25 H (0.01-0.08) K/mm3 Manual Slide Review Abnormal smear D-Dimer, Quantitative 8.59 H (0.19-0.50) mg/L Sodium 135 L (136-145) mEq/L Potassium 4.2 (3.5-5.1) mEq/L Chloride 99 (98-107) mEq/L Carbon Dioxide 28 (21-32) mEq/L Anion Gap 12.2 (5-15) BUN 16 (7-18) mg/dL Creatinine 0.9 (0.7-1.3) mg/dL Est Cr Clr Drug Dosing 120.95 mL/min Estimated GFR (MDRD) > 60 (>60) mL/min BUN/Creatinine Ratio 17.8 (14-18) Glucose 132 H (70-99) mg/dL Calcium 8.8 (8.5-10.1) mg/dL Magnesium (1.8-2.4) mg/dL Total Bilirubin 0.7 (0.2-1.0) mg/dL AST 108 H (15-37) U/L ALT 221 H (16-63) U/L Alkaline Phosphatase 142 H (46-116) U/L Troponin I < 0.017 (0.00-0.056) ng/mL C-Reactive Protein 3.0 H* (<1.0) mg/dL NT-Pro-B Natriuret Pep (0-125) pg/mL Total Protein 7.2 (6.4-8.2) g/dl Albumin 3.0 L (3.4-5.0) g/dl Globulin 4.2 gm/dL Albumin/Globulin Ratio 0.7 L (1-2) 03/21/21 03/22/21 03/22/21 Range/Units 12:19 05:21 05:21 WBC 13.90 H (4.23-9.07) K/mm3 RBC 4.78 (4.63-6.08) M/mm3 Hgb 14.4 (13.7-17.5) gm/dl Hct 43.7 (40.1-51.0) % MCV 91.4 (79.0-92.2) fl MCH 30.1 (25.7-32.2) pg MCHC 33.0 (32.2-35.5) g/dl RDW Std Deviation 41.6 (35.1-43.9) fL Plt Count 337 (163-337) K/mm3 MPV 10.3 (9.4-12.3) fl Neut % (Auto) 70.4 H (34.0-67.9) % Lymph % (Auto) 13.5 L (21.8-53.1) % Harlan % (Auto) 11.2 (5.3-12.2) % Eos % (Auto) 0.1 L (0.8-7.0) Baso % (Auto) 0.8 (0.1-1.2) % Neut # (Auto) 9.79 H (1.78-5.38) K/mm3 Lymph # (Auto) 1.88 (1.32-3.57) K/mm3 Harlan # (Auto) 1.55 H (0.30-0.82) K/mm3 Eos # (Auto) 0.01 L (0.04-0.54) K/mm3 Baso # (Auto) 0.11 H (0.01-0.08) K/mm3 Manual Slide Review D-Dimer, Quantitative 6.97 H (0.19-0.50) mg/L Sodium (136-145) mEq/L Potassium (3.5-5.1) mEq/L Chloride (98-107) mEq/L Carbon Dioxide (21-32) mEq/L Anion Gap (5-15) BUN (7-18) mg/dL Creatinine (0.7-1.3) mg/dL Est Cr Clr Drug Dosing mL/min Estimated GFR (MDRD) (>60) mL/min BUN/Creatinine Ratio (14-18) Glucose (70-99) mg/dL Calcium (8.5-10.1) mg/dL Magnesium (1.8-2.4) mg/dL Total Bilirubin (0.2-1.0) mg/dL AST (15-37) U/L ALT (16-63) U/L Alkaline Phosphatase (46-116) U/L Troponin I (0.00-0.056) ng/mL C-Reactive Protein (<1.0) mg/dL NT-Pro-B Natriuret Pep 193 H (0-125) pg/mL Total Protein (6.4-8.2) g/dl Albumin (3.4-5.0) g/dl Globulin gm/dL Albumin/Globulin Ratio (1-2) 03/22/21 Range/Units 05:21 WBC (4.23-9.07) K/mm3 RBC (4.63-6.08) M/mm3 Hgb (13.7-17.5) gm/dl Hct (40.1-51.0) % MCV (79.0-92.2) fl MCH (25.7-32.2) pg MCHC (32.2-35.5) g/dl RDW Std Deviation (35.1-43.9) fL Plt Count (163-337) K/mm3 MPV (9.4-12.3) fl Neut % (Auto) (34.0-67.9) % Lymph % (Auto) (21.8-53.1) % Harlan % (Auto) (5.3-12.2) % Eos % (Auto) (0.8-7.0) Baso % (Auto) (0.1-1.2) % Neut # (Auto) (1.78-5.38) K/mm3 Lymph # (Auto) (1.32-3.57) K/mm3 Harlan # (Auto) (0.30-0.82) K/mm3 Eos # (Auto) (0.04-0.54) K/mm3 Baso # (Auto) (0.01-0.08) K/mm3 Manual Slide Review D-Dimer, Quantitative (0.19-0.50) mg/L Sodium 138 (136-145) mEq/L Potassium 4.3 (3.5-5.1) mEq/L Chloride 101 (98-107) mEq/L Carbon Dioxide 31 (21-32) mEq/L Anion Gap 10.3 (5-15) BUN 17 (7-18) mg/dL Creatinine 0.9 (0.7-1.3) mg/dL Est Cr Clr Drug Dosing 120.95 mL/min Estimated GFR (MDRD) > 60 (>60) mL/min BUN/Creatinine Ratio 18.9 H (14-18) Glucose 122 H (70-99) mg/dL Calcium 8.7 (8.5-10.1) mg/dL Magnesium 2.5 H (1.8-2.4) mg/dL Total Bilirubin 0.6 (0.2-1.0) mg/dL AST 70 H (15-37) U/L ALT 193 H (16-63) U/L Alkaline Phosphatase 129 H (46-116) U/L Troponin I (0.00-0.056) ng/mL C-Reactive Protein 1.5 H* (<1.0) mg/dL NT-Pro-B Natriuret Pep (0-125) pg/mL Total Protein 6.6 (6.4-8.2) g/dl Albumin 2.8 L (3.4-5.0) g/dl Globulin 3.8 gm/dL Albumin/Globulin Ratio 0.7 L (1-2) Med Orders - Current: Current Medications Acetaminophen (Acetaminophen 325 Mg Tab) 650 mg PO Q4H PRN PRN Reason: Pain (Mild 1-3)/fever Albuterol/Ipratropium (Albuterol/Ipratropium 3.0-0.5 Mg/3 Ml Neb Soln) 3 ml NEB Q4H PRN PRN Reason: Shortness Of Breath/wheezing Dexamethasone (Dexamethasone 4 Mg Tab) 6 mg PO DAILY [facility] Docusate Sodium (Docusate Sodium 100 Mg Cap) 100 mg PO BID PRN PRN Reason: Constipation Enoxaparin Sodium (Enoxaparin 40 Mg/0.4 Ml Syringe) 40 mg SUBCUT DAILY [facility] Azithromycin 500 mg/ Sodium (Chloride) 250 mls @ 250 mls/hr IV Q24H [facility] Last Admin: 03/21/21 15:50 Dose: 250 mls/hr Documented by: Morphine Sulfate (Morphine 2 Mg/Ml Syringe) 2 mg IVPUSH Q2H PRN PRN Reason: Pain (severe 7-10) Stop: 03/22/21 14:12 Ondansetron HCl (Ondansetron 4 Mg Tab.Dis) 4 mg PO Q4H PRN PRN Reason: nausea, able to take PO Oxycodone HCl (Oxycodone 5 Mg Tab) 5 mg PO Q4H PRN PRN Reason: Pain (moderate 4-6) Temazepam (Temazepam 15 Mg Cap) 15 mg PO BEDTIME PRN PRN Reason: Sleep Discontinued Medications Sodium Chloride (Normal Saline) 100 mls @ 60 mls/hr IV ASDIRECTED [facility] Last Admin: 03/21/21 15:12 Dose: 60 mls/hr Documented by: Iopamidol (Iopamidol 755 Mg/Ml 100 Ml Bottle) 100 ml IVPUSH ONETIME ONE Stop: 03/21/21 15:12 Last Admin: 03/21/21 15:12 Dose: 100 ml Documented by: Sodium Chloride (Sodium Chloride 0.9% 10 Ml Syringe) 10 ml FLUSH ONETIME ONE Stop: 03/21/21 15:12 Last Admin: 03/21/21 15:12 Dose: 10 ml Documented by: - Exam Quality Assessment: Supplemental Oxygen, DVT Prophylaxis General: Alert, Oriented, Cooperative, No Acute Distress HEENT: Pupils Equal, Pupils Reactive, EOMI Neck: Supple, Trachea Midline Lungs: Decreased Breath Sounds, Crackles Cardiovascular: Regular Rate, Regular Rhythm GI/Abdominal Exam: Normal Bowel Sounds, Soft, Non-Tender, No Distention (Male) Exam: Deferred Back Exam: Normal Inspection, Full Range of Motion Extremities: Normal Inspection, Normal Range of Motion, No Pedal Edema Skin: Warm, Dry Neurological: No New Focal Deficit Psy/Mental Status: Alert, Normal Affect - Patient Data Lab Results Last 24 hrs: Laboratory Results - last 24 hr 03/21/21 03/21/21 03/21/21 Range/Units 12:19 12:19 12:19 WBC 15.29 H (4.23-9.07) K/mm3 RBC 5.02 (4.63-6.08) M/mm3 Hgb 15.2 (13.7-17.5) gm/dl Hct 45.0 (40.1-51.0) % MCV 89.6 (79.0-92.2) fl MCH 30.3 (25.7-32.2) pg MCHC 33.8 (32.2-35.5) g/dl RDW Std Deviation 41.2 (35.1-43.9) fL Plt Count 329 D (163-337) K/mm3 MPV 9.8 (9.4-12.3) fl Neut % (Auto) 76.0 H (34.0-67.9) % Lymph % (Auto) 9.2 L (21.8-53.1) % Harlan % (Auto) 10.3 (5.3-12.2) % Eos % (Auto) 0 L (0.8-7.0) Baso % (Auto) 1.6 H (0.1-1.2) % Neut # (Auto) 11.62 H (1.78-5.38) K/mm3 Lymph # (Auto) 1.40 (1.32-3.57) K/mm3 Harlan # (Auto) 1.57 H (0.30-0.82) K/mm3 Eos # (Auto) 0.00 L (0.04-0.54) K/mm3 Baso # (Auto) 0.25 H (0.01-0.08) K/mm3 Manual Slide Review Abnormal smear D-Dimer, Quantitative 8.59 H (0.19-0.50) mg/L Sodium 135 L (136-145) mEq/L Potassium 4.2 (3.5-5.1) mEq/L Chloride 99 (98-107) mEq/L Carbon Dioxide 28 (21-32) mEq/L Anion Gap 12.2 (5-15) BUN 16 (7-18) mg/dL Creatinine 0.9 (0.7-1.3) mg/dL Est Cr Clr Drug Dosing 120.95 mL/min Estimated GFR (MDRD) > 60 (>60) mL/min BUN/Creatinine Ratio 17.8 (14-18) Glucose 132 H (70-99) mg/dL Calcium 8.8 (8.5-10.1) mg/dL Magnesium (1.8-2.4) mg/dL Total Bilirubin 0.7 (0.2-1.0) mg/dL AST 108 H (15-37) U/L ALT 221 H (16-63) U/L Alkaline Phosphatase 142 H (46-116) U/L Troponin I < 0.017 (0.00-0.056) ng/mL C-Reactive Protein 3.0 H* (<1.0) mg/dL NT-Pro-B Natriuret Pep (0-125) pg/mL Total Protein 7.2 (6.4-8.2) g/dl Albumin 3.0 L (3.4-5.0) g/dl Globulin 4.2 gm/dL Albumin/Globulin Ratio 0.7 L (1-2) 03/21/21 03/22/21 03/22/21 Range/Units 12:19 05:21 05:21 WBC 13.90 H (4.23-9.07) K/mm3 RBC 4.78 (4.63-6.08) M/mm3 Hgb 14.4 (13.7-17.5) gm/dl Hct 43.7 (40.1-51.0) % MCV 91.4 (79.0-92.2) fl MCH 30.1 (25.7-32.2) pg MCHC 33.0 (32.2-35.5) g/dl RDW Std Deviation 41.6 (35.1-43.9) fL Plt Count 337 (163-337) K/mm3 MPV 10.3 (9.4-12.3) fl Neut % (Auto) 70.4 H (34.0-67.9) % Lymph % (Auto) 13.5 L (21.8-53.1) % Harlan % (Auto) 11.2 (5.3-12.2) % Eos % (Auto) 0.1 L (0.8-7.0) Baso % (Auto) 0.8 (0.1-1.2) % Neut # (Auto) 9.79 H (1.78-5.38) K/mm3 Lymph # (Auto) 1.88 (1.32-3.57) K/mm3 Harlan # (Auto) 1.55 H (0.30-0.82) K/mm3 Eos # (Auto) 0.01 L (0.04-0.54) K/mm3 Baso # (Auto) 0.11 H (0.01-0.08) K/mm3 Manual Slide Review D-Dimer, Quantitative 6.97 H (0.19-0.50) mg/L Sodium (136-145) mEq/L Potassium (3.5-5.1) mEq/L Chloride (98-107) mEq/L Carbon Dioxide (21-32) mEq/L Anion Gap (5-15) BUN (7-18) mg/dL Creatinine (0.7-1.3) mg/dL Est Cr Clr Drug Dosing mL/min Estimated GFR (MDRD) (>60) mL/min BUN/Creatinine Ratio (14-18) Glucose (70-99) mg/dL Calcium (8.5-10.1) mg/dL Magnesium (1.8-2.4) mg/dL Total Bilirubin (0.2-1.0) mg/dL AST (15-37) U/L ALT (16-63) U/L Alkaline Phosphatase (46-116) U/L Troponin I (0.00-0.056) ng/mL C-Reactive Protein (<1.0) mg/dL NT-Pro-B Natriuret Pep 193 H (0-125) pg/mL Total Protein (6.4-8.2) g/dl Albumin (3.4-5.0) g/dl Globulin gm/dL Albumin/Globulin Ratio (1-2) 03/22/21 Range/Units 05:21 WBC (4.23-9.07) K/mm3 RBC (4.63-6.08) M/mm3 Hgb (13.7-17.5) gm/dl Hct (40.1-51.0) % MCV (79.0-92.2) fl MCH (25.7-32.2) pg MCHC (32.2-35.5) g/dl RDW Std Deviation (35.1-43.9) fL Plt Count (163-337) K/mm3 MPV (9.4-12.3) fl Neut % (Auto) (34.0-67.9) % Lymph % (Auto) (21.8-53.1) % Harlan % (Auto) (5.3-12.2) % Eos % (Auto) (0.8-7.0) Baso % (Auto) (0.1-1.2) % Neut # (Auto) (1.78-5.38) K/mm3 Lymph # (Auto) (1.32-3.57) K/mm3 Harlan # (Auto) (0.30-0.82) K/mm3 Eos # (Auto) (0.04-0.54) K/mm3 Baso # (Auto) (0.01-0.08) K/mm3 Manual Slide Review D-Dimer, Quantitative (0.19-0.50) mg/L Sodium 138 (136-145) mEq/L Potassium 4.3 (3.5-5.1) mEq/L Chloride 101 (98-107) mEq/L Carbon Dioxide 31 (21-32) mEq/L Anion Gap 10.3 (5-15) BUN 17 (7-18) mg/dL Creatinine 0.9 (0.7-1.3) mg/dL Est Cr Clr Drug Dosing 120.95 mL/min Estimated GFR (MDRD) > 60 (>60) mL/min BUN/Creatinine Ratio 18.9 H (14-18) Glucose 122 H (70-99) mg/dL Calcium 8.7 (8.5-10.1) mg/dL Magnesium 2.5 H (1.8-2.4) mg/dL Total Bilirubin 0.6 (0.2-1.0) mg/dL AST 70 H (15-37) U/L ALT 193 H (16-63) U/L Alkaline Phosphatase 129 H (46-116) U/L Troponin I (0.00-0.056) ng/mL C-Reactive Protein 1.5 H* (<1.0) mg/dL NT-Pro-B Natriuret Pep (0-125) pg/mL Total Protein 6.6 (6.4-8.2) g/dl Albumin 2.8 L (3.4-5.0) g/dl Globulin 3.8 gm/dL Albumin/Globulin Ratio 0.7 L (1-2) Result Diagrams: 03/22/21 05:21 03/22/21 05:21 Sepsis Event Note - Evaluation Sepsis Screening Result: No Definite Risk - Focused Exam Vital Signs: Vital Signs Temp Pulse Resp BP Pulse Ox Pulse Ox 03/22/21 04:34 36.8 C 58 L 18 128/69 95 03/22/21 04:00 95 03/22/21 02:15 96 03/21/21 23:50 95 03/21/21 20:56 96 03/21/21 20:29 36.8 C 69 16 141/77 H 97 - Problem List & Annotations (1) Acute respiratory failure SNOMED Code(s): 44830978 Code(s): J96.00 - ACUTE RESPIRATORY FAILURE, UNSP W HYPOXIA OR HYPERCAPNIA Status: Acute Priority: High Current Visit: Yes Qualifiers: Respiratory failure complication: hypoxia Qualified Code(s): J96.01 - Acute respiratory failure with hypoxia (2) Pneumonia due to COVID-19 virus SNOMED Code(s): 182544356258581611 Code(s): U07.1 - COVID-19; J12.82 - PNEUMONIA DUE TO CORONAVIRUS DISEASE 2019 Status: Acute Priority: High Current Visit: Yes - Problem List Review Problem List Initiated/Reviewed/Updated: Yes - My Orders Last 24 Hours: My Active Orders 03/21/21 14:12 Cardiac Monitoring [RC] CONTINUOUS Oxygen Therapy [RC] PRN RT Aerosol Therapy [RC] ASDIRECTED Up ad Dariana [RC] ASDIRECTED VTE/DVT Education [RC] DAILY Vital Signs [RC] Q4HR Acetaminophen [TylenoL] 650 mg PO Q4H PRN Albuterol/Ipratropium [DuoNeb 3.0-0.5 MG/3 ML] 3 ml NEB Q4H PRN Docusate Sodium [Colace] 100 mg PO BID PRN Morphine 2 mg IVPUSH Q2H PRN Ondansetron [Zofran ODT] 4 mg PO Q4H PRN Temazepam [Restoril] 15 mg PO BEDTIME PRN oxyCODONE 5 mg PO Q4H PRN Resuscitation Status Routine 03/21/21 15:00 Azithromycin [Zithromax] 500 mg Sodium Chloride 0.9% [Normal Saline (AdvBag)] 250 ml IV Q24H 03/21/21 15:11 RT Chest Physiotherapy [RC] ASDIRECTED RT Incentive Spirometry [RC] Q1HWA 03/21/21 Dinner Regular Diet [DIET] 03/22/21 05:21 CBC WITH AUTO DIFF [HEME] AM 03/22/21 09:00 Enoxaparin [Lovenox] 40 mg SUBCUT DAILY dexAMETHasone 6 mg PO DAILY - Plan Plan:: The patient is an otherwise healthy 40-year-old gentleman who has been admitted to acute hospitalization as inpatient secondary to Covid pneumonia. The patient has a CT scan is currently pending as a result of markedly elevated D-dimer. The patient will be started on Lovenox 40 mg subcu daily venously daily. This will be adjusted upward as conditions warrant. The patient is also be kept on oxygen support to keep his saturations around 90 to 92%. The patient has been started on dexamethasone 6 mg p.o. daily. Also has a superimposed infection is likely the patient has been started on azithromycin 500 mg IV daily. The patient will be kept on his regular diet as tolerated. Repeat laboratory studies have been ordered for the morning. The patient has been ordered to have Acapella and incentive spirometer per RT. The patient should be appropriate for discharge in 2 to 3 days depending upon his oxygen demands. 03/22/2021 The patient is a 40-year-old gentleman who was admitted secondary to worsening COVID-19 pneumonia. The patient is still currently on high flow oxygen. This will be continued to keep his saturations between 90 and 92%. The patient is also on dexamethasone 6 mg p.o. daily. Also, out of concern for superimposed infection he is been on a azithromycin 500 mg IV daily. Repeat laboratory studies have been ordered for the morning. He has been instructed on the use of the Acapella and incentive spirometer. The patient has been encouraged to ambulate in the room. The patient will likely be appropriate for discharge once completion of his azithromycin and improvement of his oxygen requirements.
[2021-03-22] MEDS: Enoxaparin 40 MG/0.4 ML Syringe SUBCUT SCH (08:47)
[2021-03-22] MEDS: Dexamethasone 4 MG Tab PO SCH (08:47)
[2021-03-22] MEDS: Albuterol/Ipratropium 3.0-0.5 MG/3 ML Neb Soln NEB PRN (09:11)
[2021-03-22] MEDS: Azithromycin 500 MG in Sodium Chloride 0.9% 250 ML IV SCH (15:03)
--- NOTE | 2021-03-23 06:34 | PCM.PN ---
- General Info Date of Service: 03/23/21 Admission Dx/Problem (Free Text): Hypoxia, acute respiratory failure, COVID-19 pneumonia. Subjective Update: The patient is a 40-year-old gentleman who was admitted yesterday secondary to worsening COVID-19 symptoms. The patient has been using pulse oximetry at home. He was also started as an outpatient with steroids. The patient today still says that he has been short of breath. He has been coughing. The patient has denied any new pain. He remains on high flow oxygen. Functional Status: Reports: Pain Controlled, Tolerating Diet - Review of Systems General: Reports: Fatigue HEENT: Reports: No Symptoms Pulmonary: Reports: Cough. Denies: Shortness of Breath Cardiovascular: Reports: No Symptoms Gastrointestinal: Reports: No Symptoms Genitourinary: Reports: No Symptoms Musculoskeletal: Reports: No Symptoms Skin: Reports: No Symptoms Neurological: Reports: No Symptoms Psychiatric: Reports: No Symptoms - Patient Data Vitals - Most Recent: Last Vital Signs Temp 36.6 C 03/23/21 04:17 Pulse 55 L 03/23/21 04:17 Resp 18 03/23/21 04:17 BP 124/66 03/23/21 04:17 Pulse Ox 97 03/23/21 05:39 Weight - Most Recent: 103.374 kg I&O - Last 24 Hours: Intake & Output 03/22/21 03/22/21 03/23/21 14:59 22:59 06:59 Intake Total 120 2140 500 Balance 120 2140 500 Lab Results Last 24 Hours: Laboratory Results - last 24 hr 03/22/21 03/23/21 Range/Units 05:21 05:23 WBC 14.76 H (4.23-9.07) K/mm3 RBC 4.74 (4.63-6.08) M/mm3 Hgb 14.2 (13.7-17.5) gm/dl Hct 42.8 (40.1-51.0) % MCV 90.3 (79.0-92.2) fl MCH 30.0 (25.7-32.2) pg MCHC 33.2 (32.2-35.5) g/dl RDW Std Deviation 40.9 (35.1-43.9) fL Plt Count 345 H (163-337) K/mm3 MPV 10.2 (9.4-12.3) fl Neut % (Auto) 71.2 H (34.0-67.9) % Lymph % (Auto) 13.2 L (21.8-53.1) % Gila % (Auto) 9.5 (5.3-12.2) % Eos % (Auto) 0.1 L (0.8-7.0) Baso % (Auto) 0.4 (0.1-1.2) % Neut # (Auto) 10.51 H (1.78-5.38) K/mm3 Lymph # (Auto) 1.95 (1.32-3.57) K/mm3 Gila # (Auto) 1.40 H (0.30-0.82) K/mm3 Eos # (Auto) 0.02 L (0.04-0.54) K/mm3 Baso # (Auto) 0.06 (0.01-0.08) K/mm3 Manual Slide Review Abnormal smear Med Orders - Current: Current Medications Acetaminophen (Acetaminophen 325 Mg Tab) 650 mg PO Q4H PRN PRN Reason: Pain (Mild 1-3)/fever Albuterol/Ipratropium (Albuterol/Ipratropium 3.0-0.5 Mg/3 Ml Neb Soln) 3 ml NEB Q4H PRN PRN Reason: Shortness Of Breath/wheezing Last Admin: 03/22/21 09:11 Dose: 3 ml Documented by: Dexamethasone (Dexamethasone 4 Mg Tab) 6 mg PO DAILY [facility] Last Admin: 03/22/21 08:47 Dose: 6 mg Documented by: Docusate Sodium (Docusate Sodium 100 Mg Cap) 100 mg PO BID PRN PRN Reason: Constipation Enoxaparin Sodium (Enoxaparin 40 Mg/0.4 Ml Syringe) 40 mg SUBCUT DAILY [facility] Last Admin: 03/22/21 08:47 Dose: 40 mg Documented by: Azithromycin 500 mg/ Sodium (Chloride) 250 mls @ 250 mls/hr IV Q24H [facility] Last Admin: 03/22/21 15:03 Dose: 250 mls/hr Documented by: Ondansetron HCl (Ondansetron 4 Mg Tab.Dis) 4 mg PO Q4H PRN PRN Reason: nausea, able to take PO Oxycodone HCl (Oxycodone 5 Mg Tab) 5 mg PO Q4H PRN PRN Reason: Pain (moderate 4-6) Temazepam (Temazepam 15 Mg Cap) 15 mg PO BEDTIME PRN PRN Reason: Sleep Discontinued Medications Sodium Chloride (Normal Saline) 100 mls @ 60 mls/hr IV ASDIRECTED [facility] Last Admin: 03/21/21 15:12 Dose: 60 mls/hr Documented by: Iopamidol (Iopamidol 755 Mg/Ml 100 Ml Bottle) 100 ml IVPUSH ONETIME ONE Stop: 03/21/21 15:12 Last Admin: 03/21/21 15:12 Dose: 100 ml Documented by: Morphine Sulfate (Morphine 2 Mg/Ml Syringe) 2 mg IVPUSH Q2H PRN PRN Reason: Pain (severe 7-10) Stop: 03/22/21 14:12 Sodium Chloride (Sodium Chloride 0.9% 10 Ml Syringe) 10 ml FLUSH ONETIME ONE Stop: 03/21/21 15:12 Last Admin: 03/21/21 15:12 Dose: 10 ml Documented by: - Exam Quality Assessment: Supplemental Oxygen, DVT Prophylaxis General: Alert, Oriented, Cooperative, No Acute Distress HEENT: Pupils Equal, Pupils Reactive, EOMI, Mucous Membr. Moist/[place] Neck: Supple, Trachea Midline Lungs: Normal Respiratory Effort, Rales (Bibasilar) Cardiovascular: Regular Rate, Regular Rhythm GI/Abdominal Exam: Normal Bowel Sounds, Soft, Non-Tender, No Distention (Male) Exam: Deferred Back Exam: Normal Inspection, Full Range of Motion Extremities: Normal Inspection, Normal Range of Motion, No Pedal Edema Skin: Warm, Dry, Intact Neurological: No New Focal Deficit, Normal Gait, Normal Speech, Normal Tone Psy/Mental Status: Alert, Normal Affect, Normal Mood - Patient Data Lab Results Last 24 hrs: Laboratory Results - last 24 hr 03/22/21 03/23/21 Range/Units 05:21 05:23 WBC 14.76 H (4.23-9.07) K/mm3 RBC 4.74 (4.63-6.08) M/mm3 Hgb 14.2 (13.7-17.5) gm/dl Hct 42.8 (40.1-51.0) % MCV 90.3 (79.0-92.2) fl MCH 30.0 (25.7-32.2) pg MCHC 33.2 (32.2-35.5) g/dl RDW Std Deviation 40.9 (35.1-43.9) fL Plt Count 345 H (163-337) K/mm3 MPV 10.2 (9.4-12.3) fl Neut % (Auto) 71.2 H (34.0-67.9) % Lymph % (Auto) 13.2 L (21.8-53.1) % Gila % (Auto) 9.5 (5.3-12.2) % Eos % (Auto) 0.1 L (0.8-7.0) Baso % (Auto) 0.4 (0.1-1.2) % Neut # (Auto) 10.51 H (1.78-5.38) K/mm3 Lymph # (Auto) 1.95 (1.32-3.57) K/mm3 Gila # (Auto) 1.40 H (0.30-0.82) K/mm3 Eos # (Auto) 0.02 L (0.04-0.54) K/mm3 Baso # (Auto) 0.06 (0.01-0.08) K/mm3 Manual Slide Review Abnormal smear Result Diagrams: 03/23/21 05:23 03/23/21 05:23 Sepsis Event Note - Evaluation Sepsis Screening Result: No Definite Risk - Focused Exam Vital Signs: Vital Signs Temp Pulse Resp BP Pulse Ox Pulse Ox 03/23/21 05:39 97 03/23/21 04:17 36.6 C 55 L 18 124/66 94 L 03/22/21 21:02 36.8 C 64 18 131/86 97 03/22/21 20:45 93 L - Problem List & Annotations (1) Acute respiratory failure SNOMED Code(s): 93011895 Code(s): J96.00 - ACUTE RESPIRATORY FAILURE, UNSP W HYPOXIA OR HYPERCAPNIA Status: Acute Priority: High Current Visit: Yes Qualifiers: Respiratory failure complication: hypoxia Qualified Code(s): J96.01 - Acute respiratory failure with hypoxia (2) Pneumonia due to COVID-19 virus SNOMED Code(s): 144580252192654612 Code(s): U07.1 - COVID-19; J12.82 - PNEUMONIA DUE TO CORONAVIRUS DISEASE 2019 Status: Acute Priority: High Current Visit: Yes (3) Transaminitis SNOMED Code(s): 911475998, 319438778 Code(s): R74.01 - ELEVATION OF LEVELS OF LIVER TRANSAMINASE LEVELS Status: Acute Priority: High Current Visit: Yes - Problem List Review Problem List Initiated/Reviewed/Updated: Yes - My Orders Last 24 Hours: My Active Orders 03/22/21 09:00 Enoxaparin [Lovenox] 40 mg SUBCUT DAILY dexAMETHasone 6 mg PO DAILY 03/23/21 05:23 CBC WITH AUTO DIFF [HEME] AM COMPREHENSIVE METABOLIC PN,CMP [CHEM] AM MAGNESIUM [CHEM] AM - Plan Plan:: The patient is an otherwise healthy 40-year-old gentleman who has been admitted to acute hospitalization as inpatient secondary to Covid pneumonia. The patient has a CT scan is currently pending as a result of markedly elevated D-dimer. The patient will be started on Lovenox 40 mg subcu daily venously daily. This will be adjusted upward as conditions warrant. The patient is also be kept on oxygen support to keep his saturations around 90 to 92%. The patient has been started on dexamethasone 6 mg p.o. daily. Also has a superimposed infection is likely the patient has been started on azithromycin 500 mg IV daily. The patient will be kept on his regular diet as tolerated. Repeat laboratory studies have been ordered for the morning. The patient has been ordered to have Acapella and incentive spirometer per RT. The patient should be appropriate for discharge in 2 to 3 days depending upon his oxygen demands. 03/22/2021 The patient is a 40-year-old gentleman who was admitted secondary to worsening COVID-19 pneumonia. The patient is still currently on high flow oxygen. This will be continued to keep his saturations between 90 and 92%. The patient is also on dexamethasone 6 mg p.o. daily. Also, out of concern for superimposed infection he is been on a azithromycin 500 mg IV daily. Repeat laboratory studies have been ordered for the morning. He has been instructed on the use of the Acapella and incentive spirometer. The patient has been encouraged to ambulate in the room. The patient will likely be appropriate for discharge once completion of his azithromycin and improvement of his oxygen requirements. / 2020 The patient is a 40-year-old gentleman who will be retained as inpatient secondary to worsening of his Covid pneumonia symptoms. He is currently on dexamethasone 6 mg p.o. daily. The patient is also on azithromycin considering remdesivir is outside the window for use. Patient does have elevations of his ALT and AST and his laboratory studies have been retested. The patient is to continue oxygen and titrate to keep his saturations around 92%. The patient is on DVT prophylaxis with the use of Lovenox 40 mg subcutaneous daily and this will be continued. The patient should be appropriate for discharge once his oxygen saturations have improved sufficiently to be off of high flow oxygen. Breathing treatments will also continue. He is on a regular diet as tolerated.
[2021-03-23] MEDS: Albuterol/Ipratropium 3.0-0.5 MG/3 ML Neb Soln NEB PRN ×2 (09:18→19:51)
[2021-03-23] MEDS: Dexamethasone 4 MG Tab PO SCH (09:39)
[2021-03-23] MEDS: Enoxaparin 40 MG/0.4 ML Syringe SUBCUT SCH (09:39)
[2021-03-23] MEDS: Azithromycin 500 MG in Sodium Chloride 0.9% 250 ML IV SCH (15:55)
--- NOTE | 2021-03-24 08:52 | PCM.PN ---
- General Info Date of Service: 03/24/21 Admission Dx/Problem (Free Text): Hypoxia, acute respiratory failure, COVID-19 pneumonia. Subjective Update: The patient is a 40-year-old secondary to worsening COVID-19 symptoms. The patient has been using pulse oximetry at home. He was also started as an outpatient with steroids. Patient has had improvement in symptoms today. Appetite is good. He has been weaned down to nasal cannula off of high flow. Functional Status: Reports: Pain Controlled - Review of Systems General: Reports: No Symptoms HEENT: Reports: No Symptoms Pulmonary: Reports: Shortness of Breath, Cough Cardiovascular: Reports: No Symptoms Gastrointestinal: Reports: No Symptoms - Patient Data Vitals - Most Recent: Last Vital Signs Temp 98.2 F 03/24/21 05:50 Pulse 51 L 03/24/21 05:50 Resp 18 03/24/21 05:50 BP 119/68 03/24/21 05:50 Pulse Ox 92 L 03/24/21 06:15 Weight - Most Recent: 229 lb 6.4 oz I&O - Last 24 Hours: Intake & Output 03/23/21 03/24/21 03/24/21 22:59 06:59 14:59 Intake Total 1530 500 Output Total 200 Balance 1530 300 Lab Results Last 24 Hours: Laboratory Results - last 24 hr 03/24/21 03/24/21 Range/Units 06:00 06:00 WBC 16.16 H (4.23-9.07) K/mm3 RBC 4.58 L (4.63-6.08) M/mm3 Hgb 14.0 (13.7-17.5) gm/dl Hct 41.4 (40.1-51.0) % MCV 90.4 (79.0-92.2) fl MCH 30.6 (25.7-32.2) pg MCHC 33.8 (32.2-35.5) g/dl RDW Std Deviation 40.5 (35.1-43.9) fL Plt Count 339 H (163-337) K/mm3 MPV 9.9 (9.4-12.3) fl Neut % (Auto) 72.9 H (34.0-67.9) % Lymph % (Auto) 11.3 L (21.8-53.1) % [place] % (Auto) 8.4 (5.3-12.2) % Eos % (Auto) 0.2 L (0.8-7.0) Baso % (Auto) 0.5 (0.1-1.2) % Neut # (Auto) 11.78 H (1.78-5.38) K/mm3 Lymph # (Auto) 1.82 (1.32-3.57) K/mm3 [place] # (Auto) 1.36 H (0.30-0.82) K/mm3 Eos # (Auto) 0.04 (0.04-0.54) K/mm3 Baso # (Auto) 0.08 (0.01-0.08) K/mm3 Manual Slide Review Normal smear Sodium 138 (136-145) mEq/L Potassium 4.5 (3.5-5.1) mEq/L Chloride 103 (98-107) mEq/L Carbon Dioxide 25 (21-32) mEq/L Anion Gap 14.5 (5-15) BUN 15 (7-18) mg/dL Creatinine 0.8 (0.7-1.3) mg/dL Est Cr Clr Drug Dosing 136.07 mL/min Estimated GFR (MDRD) > 60 (>60) mL/min BUN/Creatinine Ratio 18.8 H (14-18) Glucose 117 H (70-99) mg/dL Calcium 8.7 (8.5-10.1) mg/dL Magnesium 2.3 (1.8-2.4) mg/dL Total Bilirubin 0.5 (0.2-1.0) mg/dL AST 64 H (15-37) U/L ALT 233 H (16-63) U/L Alkaline Phosphatase 127 H (46-116) U/L Total Protein 6.5 (6.4-8.2) g/dl Albumin 2.7 L (3.4-5.0) g/dl Globulin 3.8 gm/dL Albumin/Globulin Ratio 0.7 L (1-2) Med Orders - Current: Current Medications Acetaminophen (Acetaminophen 325 Mg Tab) 650 mg PO Q4H PRN PRN Reason: Pain (Mild 1-3)/fever Albuterol/Ipratropium (Albuterol/Ipratropium 3.0-0.5 Mg/3 Ml Neb Soln) 3 ml NEB Q4H PRN PRN Reason: Shortness Of Breath/wheezing Last Admin: 03/23/21 19:51 Dose: 3 ml Documented by: Dexamethasone (Dexamethasone 4 Mg Tab) 6 mg PO DAILY [facility] Last Admin: 03/23/21 09:39 Dose: 6 mg Documented by: Docusate Sodium (Docusate Sodium 100 Mg Cap) 100 mg PO BID PRN PRN Reason: Constipation Enoxaparin Sodium (Enoxaparin 40 Mg/0.4 Ml Syringe) 40 mg SUBCUT DAILY [facility] Last Admin: 03/23/21 09:39 Dose: 40 mg Documented by: Azithromycin 500 mg/ Sodium (Chloride) 250 mls @ 250 mls/hr IV Q24H [facility] Last Admin: 03/23/21 15:55 Dose: 250 mls/hr Documented by: Ondansetron HCl (Ondansetron 4 Mg Tab.Dis) 4 mg PO Q4H PRN PRN Reason: nausea, able to take PO Oxycodone HCl (Oxycodone 5 Mg Tab) 5 mg PO Q4H PRN PRN Reason: Pain (moderate 4-6) Temazepam (Temazepam 15 Mg Cap) 15 mg PO BEDTIME PRN PRN Reason: Sleep Discontinued Medications Sodium Chloride (Normal Saline) 100 mls @ 60 mls/hr IV ASDIRECTED [facility] Last Admin: 03/21/21 15:12 Dose: 60 mls/hr Documented by: Iopamidol (Iopamidol 755 Mg/Ml 100 Ml Bottle) 100 ml IVPUSH ONETIME ONE Stop: 03/21/21 15:12 Last Admin: 03/21/21 15:12 Dose: 100 ml Documented by: Morphine Sulfate (Morphine 2 Mg/Ml Syringe) 2 mg IVPUSH Q2H PRN PRN Reason: Pain (severe 7-10) Stop: 03/22/21 14:12 Sodium Chloride (Sodium Chloride 0.9% 10 Ml Syringe) 10 ml FLUSH ONETIME ONE Stop: 03/21/21 15:12 Last Admin: 03/21/21 15:12 Dose: 10 ml Documented by: - Exam Quality Assessment: Supplemental Oxygen General: Alert, Oriented HEENT: Pupils Equal, Mucous Membr. Moist/[place] Neck: Supple Lungs: Normal Respiratory Effort, Crackles (Scattered throughout both lung vinson) Cardiovascular: Regular Rate, Regular Rhythm GI/Abdominal Exam: Normal Bowel Sounds, Soft, Non-Tender, No Distention Skin: Warm, Dry, Intact Psy/Mental Status: Alert, Normal Affect, Normal Mood - Patient Data Lab Results Last 24 hrs: Laboratory Results - last 24 hr 03/24/21 03/24/21 Range/Units 06:00 06:00 WBC 16.16 H (4.23-9.07) K/mm3 RBC 4.58 L (4.63-6.08) M/mm3 Hgb 14.0 (13.7-17.5) gm/dl Hct 41.4 (40.1-51.0) % MCV 90.4 (79.0-92.2) fl MCH 30.6 (25.7-32.2) pg MCHC 33.8 (32.2-35.5) g/dl RDW Std Deviation 40.5 (35.1-43.9) fL Plt Count 339 H (163-337) K/mm3 MPV 9.9 (9.4-12.3) fl Neut % (Auto) 72.9 H (34.0-67.9) % Lymph % (Auto) 11.3 L (21.8-53.1) % [place] % (Auto) 8.4 (5.3-12.2) % Eos % (Auto) 0.2 L (0.8-7.0) Baso % (Auto) 0.5 (0.1-1.2) % Neut # (Auto) 11.78 H (1.78-5.38) K/mm3 Lymph # (Auto) 1.82 (1.32-3.57) K/mm3 [place] # (Auto) 1.36 H (0.30-0.82) K/mm3 Eos # (Auto) 0.04 (0.04-0.54) K/mm3 Baso # (Auto) 0.08 (0.01-0.08) K/mm3 Manual Slide Review Normal smear Sodium 138 (136-145) mEq/L Potassium 4.5 (3.5-5.1) mEq/L Chloride 103 (98-107) mEq/L Carbon Dioxide 25 (21-32) mEq/L Anion Gap 14.5 (5-15) BUN 15 (7-18) mg/dL Creatinine 0.8 (0.7-1.3) mg/dL Est Cr Clr Drug Dosing 136.07 mL/min Estimated GFR (MDRD) > 60 (>60) mL/min BUN/Creatinine Ratio 18.8 H (14-18) Glucose 117 H (70-99) mg/dL Calcium 8.7 (8.5-10.1) mg/dL Magnesium 2.3 (1.8-2.4) mg/dL Total Bilirubin 0.5 (0.2-1.0) mg/dL AST 64 H (15-37) U/L ALT 233 H (16-63) U/L Alkaline Phosphatase 127 H (46-116) U/L Total Protein 6.5 (6.4-8.2) g/dl Albumin 2.7 L (3.4-5.0) g/dl Globulin 3.8 gm/dL Albumin/Globulin Ratio 0.7 L (1-2) Result Diagrams: 03/24/21 06:00 03/24/21 06:00 Sepsis Event Note - Evaluation Sepsis Screening Result: No Definite Risk - Focused Exam Vital Signs: Vital Signs Temp Pulse Resp BP Pulse Ox Pulse Ox Pulse Ox 03/24/21 06:15 92 L 03/24/21 06:11 94 L 03/24/21 05:50 98.2 F 51 L 18 119/68 97 03/24/21 00:43 97.7 F 58 L 20 126/61 98 03/23/21 22:22 97.7 F 92 18 128/87 92 L 03/23/21 22:03 93 L - Problem List & Annotations (1) Acute respiratory failure SNOMED Code(s): 01012051 Code(s): J96.00 - ACUTE RESPIRATORY FAILURE, UNSP W HYPOXIA OR HYPERCAPNIA Status: Acute Priority: High Current Visit: Yes Qualifiers: Respiratory failure complication: hypoxia Qualified Code(s): J96.01 - Acute respiratory failure with hypoxia (2) Pneumonia due to COVID-19 virus SNOMED Code(s): 049720580832705541 Code(s): U07.1 - COVID-19; J12.82 - PNEUMONIA DUE TO CORONAVIRUS DISEASE 2019 Status: Acute Priority: High Current Visit: Yes (3) Transaminitis SNOMED Code(s): 975761389, 350080993 Code(s): R74.01 - ELEVATION OF LEVELS OF LIVER TRANSAMINASE LEVELS Status: Acute Priority: High Current Visit: Yes - Problem List Review Problem List Initiated/Reviewed/Updated: Yes - Plan Plan:: The patient is an otherwise healthy 40-year-old gentleman who has been admitted to acute hospitalization as inpatient secondary to Covid pneumonia. The patient has a CT scan is currently pending as a result of markedly elevated D-dimer. The patient will be started on Lovenox 40 mg subcu daily venously daily. This will be adjusted upward as conditions warrant. The patient is also be kept on oxygen support to keep his saturations around 90 to 92%. The patient has been started on dexamethasone 6 mg p.o. daily. Also has a superimposed infection is likely the patient has been started on azithromycin 500 mg IV daily. The patient will be kept on his regular diet as tolerated. Repeat laboratory studies have been ordered for the morning. The patient has been ordered to have Acapella and incentive spirometer per RT. The patient should be appropriate for discharge in 2 to 3 days depending upon his oxygen demands. 03/22/2021 The patient is a 40-year-old gentleman who was admitted secondary to worsening COVID-19 pneumonia. The patient is still currently on high flow oxygen. This will be continued to keep his saturations between 90 and 92%. The patient is also on dexamethasone 6 mg p.o. daily. Also, out of concern for superimposed infection he is been on a azithromycin 500 mg IV daily. Repeat laboratory studies have been ordered for the morning. He has been instructed on the use of the Acapella and incentive spirometer. The patient has been encouraged to ambulate in the room. The patient will likely be appropriate for discharge once completion of his azithromycin and improvement of his oxygen requirements. / 2020 The patient is a 40-year-old gentleman who will be retained as inpatient secondary to worsening of his Covid pneumonia symptoms. He is currently on dexamethasone 6 mg p.o. daily. The patient is also on azithromycin considering remdesivir is outside the window for use. Patient does have elevations of his ALT and AST and his laboratory studies have been retested. The patient is to continue oxygen and titrate to keep his saturations around 92%. The patient is on DVT prophylaxis with the use of Lovenox 40 mg subcutaneous daily and this will be continued. The patient should be appropriate for discharge once his oxygen saturations have improved sufficiently to be off of high flow oxygen. Breathing treatments will also continue. He is on a regular diet as tolerated. 03/24/2021 40-year-old male with COVID-19 pneumonia his significantly improved over the last day. He has received 4 days of azithromycin, 3 days of dexamethasone, and was weaned off of high flow nasal cannula today. Patient states that his does not like remdesivir so he was not started on remdesivir. Currently he is on 4 L O2 via nasal cannula with saturations in the low to mid 90s. AST is 64, ALT 233, alkaline phosphatase 127. This is showing some improvement. Plan Continue to wean patient off of O2 as appropriate. Stop azithromycin Continue to follow liver enzymes If we are able to wean him down below 4 L we may be able to discharge him home in the morning. VTE prophylaxis with Lovenox CODE STATUS full code
[2021-03-24] MEDS: Enoxaparin 40 MG/0.4 ML Syringe SUBCUT SCH (09:09)
[2021-03-24] MEDS: Dexamethasone 4 MG Tab PO SCH (09:09)
--- NOTE | 2021-03-24 09:49 | CR ---
Chest: Frontal view of the chest was obtained. Comparison: Prior chest x-ray 03/21/21. Diffuse increased density is seen throughout both sides of the chest. Findings have minimally improved in density from prior study but overall distribution is stable. Heart size and mediastinum are within normal limits. Bony structures show nothing acute. Impression: 1. Minimally improved density throughout both sides of the chest. Overall distribution of presumed COVID pneumonia remains stable. 2. Nothing acute is otherwise seen. Diagnostic code #3
[2021-03-24] MEDS: Azithromycin 500 MG in Sodium Chloride 0.9% 250 ML IV SCH (14:39)
[2021-03-25] MEDS: Dexamethasone 4 MG Tab PO SCH (09:09)
[2021-03-25] MEDS: Enoxaparin 40 MG/0.4 ML Syringe SUBCUT SCH (09:10)
--- NOTE | 2021-03-25 10:27 | PCM.DCSUM1 ---
Discharge Summary - Hospital Course HPI Initial Comments: The patient is an otherwise healthy 40-year-old gentleman who presented to the emergency department with worsening shortness of breath and and low oxygen saturation levels. The patient had been testing his pulse ox at home. The patient had been using oxygen at home on a temporary basis and he also had been started on steroids. The patient also completed a course of azithromycin. Initially Regeneron was offered but this was declined. The patient also states that he is off of quarantine according to the [facility] department. The patient is not taking any other medications chronically. Assessment/Plan Comment:: The patient is an otherwise healthy 40-year-old gentleman who has been admitted to acute hospitalization as inpatient secondary to Covid pneumonia. The patient has a CT scan is currently pending as a result of markedly elevated D-dimer. The patient will be started on Lovenox 40 mg subcu daily venously daily. This will be adjusted upward as conditions warrant. The patient is also be kept on oxygen support to keep his saturations around 90 to 92%. The patient has been started on dexamethasone 6 mg p.o. daily. Also has a superimposed infection is likely the patient has been started on azithromycin 500 mg IV daily. The patient will be kept on his regular diet as tolerated. Repeat laboratory studies have been ordered for the morning. The patient has been ordered to have Acapella and incentive spirometer per RT. The patient should be appropriate for discharge in 2 to 3 days depending upon his oxygen demands. - Mortality Measure Prognosis:: Good Diagnosis: Stroke: No - Discharge Data Discharge Date: 03/25/21 Discharge Disposition: Home, Self-Care 01 Condition: Good - Referral to Home Health Primary Care Physician: Maribel Treviño MD - Discharge Diagnosis/Problem(s) (1) Acute respiratory failure SNOMED Code(s): 88292120 ICD Code: J96.00 - ACUTE RESPIRATORY FAILURE, UNSP W HYPOXIA OR HYPERCAPNIA Status: Acute Priority: High Current Visit: Yes Qualifiers: Respiratory failure complication: hypoxia Qualified Code(s): J96.01 - Acute respiratory failure with hypoxia (2) Pneumonia due to COVID-19 virus SNOMED Code(s): 738226927300175021 ICD Code: U07.1 - COVID-19; J12.82 - PNEUMONIA DUE TO CORONAVIRUS DISEASE 2018 Status: Acute Priority: High Current Visit: Yes (3) Transaminitis SNOMED Code(s): 796428476, 995914525 ICD Code: R74.01 - ELEVATION OF LEVELS OF LIVER TRANSAMINASE LEVELS Status: Acute Priority: High Current Visit: Yes - Patient Summary/Data Hospital Course: On admission patient had a CT angiogram that showed no pulmonary embolism and prominent changes of Covid pneumonia in both lungs. Patient was started on Lovenox, dexamethasone, azithromycin, but not remdesivir. He stated his had a problem with remdesivir so he was not given it. He also received DuoNeb treatments. He did require high flow nasal cannula but was weaned down the day before discharge. At time of discharge he required between 0 and 1-1/2 L of O2. Patient will not need to be discharged on dexamethasone. Hospitalization was uneventful and discharged in good condition. - Patient Instructions Diet: Usual Diet as Tolerated Activity: As Tolerated Driving: Do Not Drive Showering/Bathing: May Shower Notify Provider of: Fever, Increased Pain, Nausea and/or Vomiting Other/Special Instructions: Follow-up with primary care provider within 1 to 2 weeks. If worsening oxygenation or shortness of breath return to emergency department. - Discharge Plan *PRESCRIPTION DRUG MONITORING PROGRAM REVIEWED*: No *COPY OF PRESCRIPTION DRUG MONITORING REPORT IN PATIENT BEBE: No Oxygen Therapy Mode: Nasal Cannula Oxygen Flow Rate (L/min): 1 Maintain SPO2% less than: 92 Patient Handouts: COVID-19 Frequently Asked Questions, COVID-19, 10 Things You Can Do to Manage Your COVID-19 Symptoms at Home - [facility] (01/09/2021), Home Oxygen Use, Adult, Smokeless Tobacco Information, Adult, Sepsis, Self Care, Adult Referrals: Maribel Treviño MD [Primary Care Provider] - 04/03/21 11:00 am (This is your check in time. please bring insurance cards and photo ID. ) - Discharge Summary/Plan Comment DC Time >30 min.: No Total # of Minutes for Discharge Time: 25 minutes Discharge Summary/Plan Comment: Follow-up with primary care provider within 1 week. Continue home O2 as needed for oxygen saturations less than 92%. - General Info Date of Service: 03/25/21 Admission Dx/Problem (Free Text: Hypoxia, acute respiratory failure, COVID-19 pneumonia. Subjective Update: Patient states he is doing much better today. He does need approximately 1 L nasal cannula. He does have home O2 so can go home on that. Functional Status: Reports: Pain Controlled - Review of Systems General: Reports: No Symptoms HEENT: Reports: No Symptoms Pulmonary: Reports: No Symptoms Cardiovascular: Reports: No Symptoms Gastrointestinal: Reports: No Symptoms Musculoskeletal: Reports: No Symptoms - Patient Data Vitals - Most Recent: Last Vital Signs Temp 97.9 F 03/25/21 08:09 Pulse 63 03/25/21 08:09 Resp 20 03/25/21 08:09 BP 128/74 03/25/21 08:09 Pulse Ox 91 L 03/25/21 08:09 Weight - Most Recent: 227 lb 8 oz I&O - Last 24 hours: Intake & Output 03/24/21 03/25/21 03/25/21 22:59 06:59 14:59 Intake Total 1270 900 Balance 1270 900 Lab Results - Last 24 hrs: Laboratory Results - last 24 hr 03/25/21 03/25/21 03/25/21 Range/Units 05:30 05:30 05:50 WBC 19.09 H (4.23-9.07) K/mm3 RBC 4.68 (4.63-6.08) M/mm3 Hgb 14.3 (13.7-17.5) gm/dl Hct 42.2 (40.1-51.0) % MCV 90.2 (79.0-92.2) fl MCH 30.6 (25.7-32.2) pg MCHC 33.9 (32.2-35.5) g/dl RDW Std Deviation 40.9 (35.1-43.9) fL Plt Count 353 H (163-337) K/mm3 MPV 10.3 (9.4-12.3) fl Neut % (Auto) 72.9 H (34.0-67.9) % Lymph % (Auto) 11.0 L (21.8-53.1) % Cotton % (Auto) 8.9 (5.3-12.2) % Eos % (Auto) 0.5 L (0.8-7.0) Baso % (Auto) 0.3 (0.1-1.2) % Neut # (Auto) 13.91 H (1.78-5.38) K/mm3 Lymph # (Auto) 2.10 (1.32-3.57) K/mm3 Cotton # (Auto) 1.70 H (0.30-0.82) K/mm3 Eos # (Auto) 0.10 (0.04-0.54) K/mm3 Baso # (Auto) 0.05 (0.01-0.08) K/mm3 Manual Slide Review Abnormal smear D-Dimer, Quantitative 2.31 H (0.19-0.50) mg/L Sodium 136 (136-145) mEq/L Potassium 4.4 (3.5-5.1) mEq/L Chloride 102 (98-107) mEq/L Carbon Dioxide 26 (21-32) mEq/L Anion Gap 12.4 (5-15) BUN 17 (7-18) mg/dL Creatinine 0.8 (0.7-1.3) mg/dL Est Cr Clr Drug Dosing 136.07 mL/min Estimated GFR (MDRD) > 60 (>60) mL/min BUN/Creatinine Ratio 21.3 H (14-18) Glucose 120 H (70-99) mg/dL Calcium 8.8 (8.5-10.1) mg/dL Phosphorus 4.0 (2.6-4.7) mg/dL Magnesium 2.2 (1.8-2.4) mg/dL Total Bilirubin 0.4 (0.2-1.0) mg/dL AST 48 H (15-37) U/L ALT 231 H (16-63) U/L Alkaline Phosphatase 131 H (46-116) U/L C-Reactive Protein 1.5 H* (<1.0) mg/dL Total Protein 6.6 (6.4-8.2) g/dl Albumin 2.8 L (3.4-5.0) g/dl Globulin 3.8 gm/dL Albumin/Globulin Ratio 0.7 L (1-2) Med Orders - Current: Current Medications Acetaminophen (Acetaminophen 325 Mg Tab) 650 mg PO Q4H PRN PRN Reason: Pain (Mild 1-3)/fever Albuterol/Ipratropium (Albuterol/Ipratropium 3.0-0.5 Mg/3 Ml Neb Soln) 3 ml NEB Q4H PRN PRN Reason: Shortness Of Breath/wheezing Last Admin: 03/23/21 19:51 Dose: 3 ml Documented by: Dexamethasone (Dexamethasone 4 Mg Tab) 6 mg PO DAILY [facility] Last Admin: 03/25/21 09:09 Dose: 6 mg Documented by: Docusate Sodium (Docusate Sodium 100 Mg Cap) 100 mg PO BID PRN PRN Reason: Constipation Enoxaparin Sodium (Enoxaparin 40 Mg/0.4 Ml Syringe) 40 mg SUBCUT DAILY [facility] Last Admin: 03/25/21 09:10 Dose: 40 mg Documented by: Ondansetron HCl (Ondansetron 4 Mg Tab.Dis) 4 mg PO Q4H PRN PRN Reason: nausea, able to take PO Oxycodone HCl (Oxycodone 5 Mg Tab) 5 mg PO Q4H PRN PRN Reason: Pain (moderate 4-6) Temazepam (Temazepam 15 Mg Cap) 15 mg PO BEDTIME PRN PRN Reason: Sleep Discontinued Medications Azithromycin 500 mg/ Sodium (Chloride) 250 mls @ 250 mls/hr IV Q24H [facility] Last Admin: 03/24/21 14:39 Dose: 250 mls/hr Documented by: Sodium Chloride (Normal Saline) 100 mls @ 60 mls/hr IV ASDIRECTED [facility] Last Admin: 03/21/21 15:12 Dose: 60 mls/hr Documented by: Iopamidol (Iopamidol 755 Mg/Ml 100 Ml Bottle) 100 ml IVPUSH ONETIME ONE Stop: 03/21/21 15:12 Last Admin: 03/21/21 15:12 Dose: 100 ml Documented by: Morphine Sulfate (Morphine 2 Mg/Ml Syringe) 2 mg IVPUSH Q2H PRN PRN Reason: Pain (severe 7-10) Stop: 03/22/21 14:12 Sodium Chloride (Sodium Chloride 0.9% 10 Ml Syringe) 10 ml FLUSH ONETIME ONE Stop: 03/21/21 15:12 Last Admin: 03/21/21 15:12 Dose: 10 ml Documented by: - Exam Quality Assessment: Reports: Supplemental Oxygen General: Reports: Alert, Oriented HEENT: Reports: Pupils Equal, Mucous Membr. Moist/[place] Neck: Reports: Supple Lungs: Reports: Normal Respiratory Effort, Crackles (Scattered bibasilar) Cardiovascular: Reports: Regular Rate, Regular Rhythm GI/Abdominal Exam: Normal Bowel Sounds, Soft, Non-Tender, No Distention Extremities: Normal Inspection, No Pedal Edema Skin: Reports: Warm, Dry, Intact Psy/Mental Status: Reports: Alert, Normal Affect, Normal Mood
== END 2021-03-25 11:55 | disposition home or self-care (01) | DRG 137 ==
LOC: JD.ED 11:32 → JD.MS 14:10
PROVIDERS: ADMIT Internal Medicine; ATTEND Internal Medicine
PROC: 3E0DX3Z Introduction of Anti-inflammatory into Mouth and Pharynx, External Approach (ICD-10-PCS; principal; 2021-03-21)
PROC: 5A0955A Assistance with Respiratory Ventilation, Greater than 96 Consecutive Hours, High Flow/Velocity Cannula (ICD-10-PCS; 2021-03-21)
DX: U07.1 COVID-19 (principal); J12.82 Pneumonia due to coronavirus disease 2019; J96.01 Acute respiratory failure with hypoxia; R74.01 Elevation of levels of liver transaminase levels; F17.290 Nicotine dependence, other tobacco product, uncomplicated; Z88.0 Allergy status to penicillin
CPT/HCPCS: 36415; 71045; 71045-26; 71275; 71275-26; 80053; 83735; 83880; 84100; 84484; 85025; 85379; 86140; 93005; 94640; 94668; 94762; 99285-25; J0456; J1650; J7050; J7620-GY; J8540; Q9967